=== PATIENT | male | born 1935 | race Caucasian/White ===

== ENCOUNTER → 2016-11-13 | Outpatient (REF) | payer MEDICARE, BC | LOC: M LAB REF 11:38 | PROVIDERS: ATTEND Otolaryngology | DX: K13.21 Leukoplakia of oral mucosa, including tongue (principal) ==

== ENCOUNTER → 2018-06-29 | Outpatient (CLI) | payer MEDICARE, BC ==
--- NOTE | 2018-06-29 12:26 | REP ---
Chest two views HISTORY: shortness of breath Comparison: None The lungs are clear. The heart is normal in size. The pulmonary vasculature is normal in appearance. Degenerative change is present in the thoracic spine. IMPRESSION: No acute disease. Electronically Signed by Walter Christianson MD 06/29/2018 12:18 P
== END ==
LOC: M WUC 11:42
PROVIDERS: ATTEND Family Medicine
DX: R06.02 Shortness of breath (principal)

== ENCOUNTER → 2018-08-19 | Outpatient (REF) | payer MEDICARE, BC ==
[2018-08-19 18:23] LABS: PERCENT SATURATION 10.4 % (19.7-50.0)
== END ==
LOC: M LAB REF 16:22
PROVIDERS: ATTEND Internal Medicine
DX: D64.9 Anemia, unspecified (principal)

== ENCOUNTER 2018-09-30 12:18 | Inpatient (IN) | payer MEDICARE, BC ==
[~2018-09-30] VITALS: Ht 190.5 cm; Wt 92.1 kg
[2018-09-30] MEDS ORDERED: AMLO5TAB6 PO (12:28)
[2018-09-30] MEDS ORDERED: SYNT100T PO (12:28)
[2018-09-30] MEDS ORDERED: ROSU40TA4 PO (12:28)
[2018-09-30] MEDS ORDERED: LISI-538 PO (12:41)
[2018-09-30] MEDS ORDERED: FERR324T2 PO (12:41)
[2018-09-30] MEDS ORDERED: METO1TAB87 PO (12:41)
[2018-09-30 13:02] LABS: BASO # 0.1 10^3/uL (0.0-0.2); BASO % 0.4 % (0.0-1.0); EOS % 0.2 % (0.0-3.0); HEMATOCRIT 28.9 % (42.0-52.0); HEMOGLOBIN 9.4 g/dl (13.5-17.5); LYMPH # 1.5 10^3/uL (1.5-4.5); MEAN CORPUSCULAR HGB CONC 32.5 g/dl (32.0-36.5); MEAN CORPUSCULAR VOLUME 80.1 fl (80.0-96.0); MONO # 1.6 10^3/uL (0.0-0.8); MONO % 9.5 % (0.0-5.0); PLATELET COUNT, AUTOMATED 519 10^3/uL (150-450); RED BLOOD COUNT 3.61 10^6/uL (4.30-6.10); WHITE BLOOD COUNT 16.5 10^3/uL (4.0-10.0)
[2018-09-30] MEDS ORDERED: NS 500 ML IV ONE (13:15)
[2018-09-30 13:31] LABS: ALBUMIN 2.4 GM/DL (3.2-5.2); BILIRUBIN,TOTAL 0.3 MG/DL (0.2-1.0); CALCIUM LEVEL 9.7 MG/DL (8.8-10.2); CREATININE FOR GFR 2.36 MG/DL (0.70-1.30); GLOMERULAR FILTRATION RATE 28.2 (>35); POTASSIUM SERUM 4.9 MEQ/L (3.5-5.1); TOTAL PROTEIN 7.5 GM/DL (6.4-8.2)
[2018-09-30] MEDS ORDERED: SENN-23 PO (16:32)
--- NOTE | 2018-09-30 16:57 | REP ---
CT abdomen and pelvis without IV or oral contrast: History: Acute renal failure. Renal mass. No comparison imaging available. 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 The lung bases show no evidence of infiltrate. There are multiple subcentimeter noncalcified pulmonary nodules in the right lower lobe. These are indeterminate. No pleural effusion is seen. The liver is normal in size. There is a low-density lesion in the right lobe posterior to the intrahepatic segment of the IVC. This low density area measures 1.7 cm in greatest diameter. There is an ill-defined large low density area in the left hepatic lobe which could be a liver mass lesion. This measures approximately 8 cm in greatest diameter. A second smaller lesion is suspected adjacent to this. No other focal liver lesion is seen. There are layering gallstones in the dependent portion the gallbladder. No biliary ductal dilation is evident. There are multiple cysts affecting the right kidney, the largest of which measures 6.1 cm. No right hydronephrosis is seen. No evidence of right renal mass is noted. There is a large mass involving the upper pole of the left kidney and measuring approximately 9 cm in greatest diameter. It is heterogeneous and there are central low density areas suggesting some central necrosis. It is most compatible with renal cell carcinoma. There is soft tissue density lateral to the left side of the aorta at the level of the left renal hilus, which may represent left renal vein involvement and enlargement with tumor thrombus versus regional adenopathy. There is a 1.9 cm nodular periaortic density below this which likely is regional adenopathy. There is another suspicious lymph node at the level above the renal artery pedicle on the left. This measures 1.2 cm in greatest diameter. Hydronephrosis is seen. There is a lower pole cyst affecting the left kidney. The aortobi-iliac stent graft is seen in place treating the abdominal aortic aneurysm. The abdominal aortic aneurysm measures 4.5 cm in greatest AP dimension. Small and large bowel loops show ileus versus enteritis pattern. There is an umbilical hernia transmitting abdominal fat. No free air is seen. Normal appendix is visible. Bone window settings show no bony destructive lesion. The sacroiliac joints appear to be fused. There are advanced degenerative disc changes and facet changes in the lumbar spine and there is evidence of significant central canal stenosis in the lumbar spine at L3-4. Impression: 9 cm suspicious mass upper pole left kidney consistent with renal cell carcinoma. Findings suspicious for regional adenopathy and left renal vein tumor thrombus. Possible large metastatic lesion in the left lobe of the liver versus regional fat infiltration. Recommend hepatic sonography. There are indeterminate subcentimeter pulmonary nodules in the right lower lobe of the lung. Ileus versus enteritis pattern in the bowel gas. Cholelithiasis. Multiple right and left renal cysts. Electronically Signed by Alok Cuellar MD 09/30/2018 09:07 P
[2018-09-30] MEDS ORDERED: SENOKOT S TAB PO PRN (17:15)
[2018-09-30] MEDS ORDERED: LR 1,000 ML IV ONE (17:15)
--- NOTE | 2018-09-30 17:26 | HPEPDOC ---
[facility] Medical History & Physical Date of Admission Sep 30, 2018 Date of Service: Sep 30, 2018 History and Physical CHIEF COMPLAINT: Weakness HISTORY OF PRESENT ILLNESS: This is a 83-year-old man presents with progressively worsening weakness his history is rather interesting, 4 weeks ago he developed dark urine presented to primary care provider after suspecting hematuria and passing large clots at that point he was diagnosed with iron deficiency anemia started on iron supplementation and a CT scan without contrast was checked revealing a large 8.3 cm left renal mass as well as some small concerning liver lesions. He was then referred to a urologist completed a CT scan with contrast on September 25 confirmed the lesion as well revealed extension into the renal vein highly suspicious liver metastasis from a possible left renal carcinoma primary. The patient was subsequently referred to [facility] where he seen Dr. Sims and the plan is for a biopsy of his left renal mass in 2 weeks. Given the patient's history of coronary artery disease abdominal aortic disease was not felt to be a surgical candidate and as such suspicion was once a tissue diagnosis can be made he may be a candidate for ch emotherapy/radiotherapy. The patient was seen in the oncology office yesterday. However today he is notably more week feeling unsteady on his feet and having increasingly difficulty caring for himself at home prompting him and his and a close friend who has some nursing background to present to the emergency room today. The patient provides a history of 30 pound weight loss since May and poor appetite he denies any chest pressure or palpitations. The patient tells me that he has had intermittent pain in his left flank which at the present time he is not experiencing. Otherwise patient denies hair loss, headache, visual changes, shortness of breath, cough, diarrhea, abdominal pain, muscle aches, worsening arthritis, change in mood PAST MEDICAL HISTORY: 1. Coronary artery disease stents 4. 2. Abdominal aortic aneurysm status post endograft repair. 3. Hypertension. 4. Prostate cancer treated with " freezing" 5' arthritis 6 dyslipidemia 7 hypothyroidism 8 iron deficiency anemia 9 beta cell carcinoma the face HOME MEDICATIONS: Please see below. ALLERGIES: Please see below PAST SURGICAL HISTORY: 1. Bilateral hip repair. 2. Aortic graft for abdominal aortic aneurysm. 3. Basal cell carcinoma of the face . SOCI excisionAL HISTORY: Lives with: , Employment: Retired, Tobacco use: Former smoker in the distant past [id number]. ETOH: Denies, Illicit drug use: Denies, CODE STATUS: Full code FAMILY HISTORY:Reviewed and noncontributory REVIEW OF SYSTEMS: 10 systems reviewed and negative other than HPI PHYSICAL EXAMINATION: VITAL SIGNS: Temperature 97.6, pulse 100, respiratory rate 16, blood pressure 107/50, pulse oximetry 98 % on room air. GENERAL: Pleasant wasted-appearing male sitting up in bed awake alert oriented speaking in complete sentences no acute distress accompanied by his and good friend HEENT: Mildly dry mucous membranes no elevation in CVP CARDIOVASCULAR: S1 S2 irregularly irregular mildly tachycardic no additional heart sounds appreciated. RESPIRATORY: Clear to auscultation bilaterally. ABDOMINAL: Bowel sounds present abdomen soft and some mild tenderness to deep palpation in the epigastric region there is no CVA tenderness EXTREMITIES: No clubbing cyanosis or edema NEUROLOGICAL: Spontaneously moves all 4 extremities cranial 2 through 12 grossly intact no gross focal deficits appreciated PSYCHOLOGICAL: Appropriate LABORATORY DATA: See below. MICROBIOLOGY: Please see below. IMAGING: CT abdomen and pelvis: Report is pending the patient travels with previous CT reports from the last 2 months ASSESSMENT & PLAN: This is a 83-year-old man with likely renal cell carcinoma with extension into the renal vein and numerous liver metastasis presenting now with acute renal failure. PROBLEMS: 1. Acute renal failure: He was reportedly told his baseline creatinine is closer to 1.60 is currently 2.3. He is orthostatic in the emergency room I suspect given his poor by mouth intake he may be dehydrated and I'll provide him with lactated Ringer's bolus as well as maintenance fluids following. I will follow up his BMP repeat in the morning closely. I'll also check urine studies including a UA to exclude any potential etiologies for his hypertension such as a urinary tract infection, given his history of a low threshold to begin antibiotics on him. Should he fail to improve with these measures could consider inpatient nephrology consultation, patient was reportedly told that his right kidney was functioning just fine, follow-up CT of the abdomen and pelvis to exclude any obstructive process. 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 He is also orthostatic again I suspect possible secondary to some dehydration we will adequately hydrate him have him work with physical therapy and encourage by mouth provide a regular diet with nutritional supplements place a nutritional consult. The patient and family request a hospital bed and as such a PFS consultation placed. He also complains to have an element of symptomatic anemia 3. Atrial fibrillation with rapid ventricular response: Patient has a history of coronary artery disease and is normally on a beta mercedez and a statin in the setting of hematuria we are holding aspirin and pharmacological DVT prophylaxis I will continue with his beta mercedez for rate control with holding parameter gi nallely his soft blood pressure. I would withhold anticoagulation from him in the setting of ongoing bleeding. I will check an echocardiogram and TSH cycle his troponins and monitor him closely on telemetry and optimistic when his blood pressure improves may be able to increase his rate control 4. Anemia: Patient was told this was iron deficiency, I will send anemia workup he certainly has had significant and ongoing bleeding for months in his urine will rule out other potential etiologies as well his hemoglobin is not quite low enough to make me suspect that his driving WEAKNESS I would hold off on any transfusions at this time I will have a type and screen completed on standby. Follow CBC daily. Given his anemia and liver disease I will check an INR 5. 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 Hypertension: At this time he is actually hypotensive I will hold lisinopril and amlodipine in favor of metoprolol for some rate control 7. Dyslipidemia: I will hold Crestor in the setting of liver metastasis and check a liver profile 8. 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 Certainly given his age and multiple comorbidities and fragility long-term prognosis is certainly guarded DVT PROPHYLAXIS: Sequentials and teds pharmacological agents in the setting of possible ongoing bleeding DISPOSITION: Progressive care unit inpatient status Vital Signs Vital Signs Date Time Temp Pulse Resp B/P (MAP) Pulse Ox O2 Delivery O2 Flow Rate FiO2 09/30/18 16:34 100 100 09/30/18 15:53 116/75 (89) 113/57 (75) 107/50 (69) 09/30/18 13:18 Room Air 09/30/18 12:19 97.6 16 Laboratory Data Labs 24H Laboratory Tests 2 09/30/18 12:51: Immature Granulocyte % (Auto) 1.9, White Blood Count 16.5H, Red Blood Count 3.61L, Hemoglobin 9.4L, Hematocrit 28.9L, Mean Corpuscular Volume 80.1, Mean Corpuscular Hemoglobin 26.0L, Mean Corpuscular Hemoglobin Concent 32.5, Red Cell Distribution Width 15.6H, Platelet Count 519H, Neutrophils (%) (Auto) 79.0H, Lymphocytes (%) (Auto) 9.0L, Monocytes (%) (Auto) 9.5H, Eosinophils (%) (Auto) 0.2, Basophils (%) (Auto) 0.4, Neutrophils # (Auto) 13.0H, Lymphocytes # (Auto) 1.5, Monocytes # (Auto) 1.6H, Eosinophils # (Auto) 0.0, Basophils # (Auto) 0.1, Nucleated Red Blood Cells % (auto) 0.0, Anion Gap 9, Glomerular Filtration Rate 28.2L, Blood Urea Nitrogen 64H, Creatinine 2.36H, Sodium Level 134L, Potassium Level 4.9, Chloride Level 100, Carbon Dioxide Level 25, Calcium Level 9.7, Aspartate Amino Transf (AST/SGOT) 62H, Alanine Aminotransferase (ALT/SGPT) 56, Alkaline Phosphatase 150H, Total Bilirubin 0.3, Total Protein 7.5, Albumin 2.4L, Albumin/Globulin Ratio 0.47L CBC/BMP Laboratory Tests 09/30/18 12:51 Red Blood Count 3.61 L, Mean Corpuscular Volume 80.1, Mean Corpuscular Hemoglobin 26.0 L, Mean Corpuscular Hemoglobin Concent 32.5, Red Cell Distribution Width 15.6 H, Neutrophils (%) (Auto) 79.0 H, Lymphocytes (%) (Auto) 9.0 L, Monocytes (%) (Auto) 9.5 H, Eosinophils (%) (Auto) 0.2, Basophils (%) (Auto) 0.4, Neutrophils # (Auto) 13.0 H, Lymphocytes # (Auto) 1.5, Monocytes # (Auto) 1.6 H, Eosinophils # (Auto) 0.0, Basophils # (Auto) 0.1, Calcium Level 9.7, Aspartate Amino Transf (AST/SGOT) 62 H, Alanine Aminotransferase (ALT/SGPT) 56, Alkaline Phosphatase 150 H, Total Bilirubin 0.3, Total Protein 7.5, Albumin 2.4 L Home Medications Scheduled Amlodipine Besylate (Amlodipine Besylate) 5 Mg Tablet, 5 MG PO DAILY Ferrous Sulfate (Ferrous Sulfate) 324 Mg Tablet.dr, 324 MG PO Q2D Levothyroxine Sodium (Synthroid) 100 Mcg Tablet, 100 MCG PO DAILY Lisinopril (Lisinopril) 20 Mg Tablet, 20 MG PO DAILY Metoprolol Tartrate (Metoprolol Tartrate) 25 Mg Tablet, 25 MG PO BID Rosuvastatin Calcium (Rosuvastatin Calcium) 40 Mg Tablet, 40 MG PO DAILY Scheduled PRN Sennosides/Docusate Sodium (Senna-S Tablet) 1 Each Tablet, 2 TAB PO DAILY PRN for CONSTIPATION Allergies Coded Allergies: No Known Allergies (Unverified , 09/30/18) A-FIB/CHADSVASC A-FIB History Current/History of A-Fib/PAF?: Yes Current PO Anticoag Therapy: No Treatment Reason Anticoagulant not given: Current bleeding FRANCO BAIG MD Sep 30, 2018 17:26
[2018-09-30 18:11] LABS: INR 1.36; PROTHROMBIN TIME 16.5 SECONDS (11.8-14.0)
[2018-09-30 18:20] LABS: BILIRUBIN,DIRECT 0.2 MG/DL (0.0-0.2); PERCENT SATURATION 13.6 % (19.7-50.0); THYROID STIMULATING HORMONE 1.44 uIU/ML (0.358-3.740); TROPONIN I 0.06 NG/ML (< 0.10)
[2018-09-30 19:22] VITALS: BP 117/91
[2018-09-30 20:00] VITALS: BP 100/55
[2018-09-30] MEDS: METOPROLOL TART 25 MG TABLET PO SCH (21:00)
[2018-09-30] MEDS: LR 1,000 ML IV SCH (22:39)
[2018-09-30 23:20] LABS: OSMOLALITY URINE 542 MOSM/KG (500-800)
[2018-09-30 23:56] LABS: SODIUM,RANDOM URINE 18 MEQ/L
[2018-10-01] VITALS (7 sets, daily range): BP systolic 94–118; BP diastolic 54–80
[2018-10-01] MEDS: LEVOTHYROXINE 100MCG TABLET (0.1MG) PO SCH (06:01)
[2018-10-01 06:22] LABS: TROPONIN I 0.07 NG/ML (< 0.10)
[2018-10-01 07:00] LABS: CREATININE FOR GFR 1.99 MG/DL (0.70-1.30); GLOMERULAR FILTRATION RATE 34.3 (>35)
[2018-10-01 07:01] LABS: BILIRUBIN,TOTAL 0.4 MG/DL (0.2-1.0); CALCIUM LEVEL 9.4 MG/DL (8.8-10.2); POTASSIUM SERUM 4.3 MEQ/L (3.5-5.1); TOTAL PROTEIN 7.1 GM/DL (6.4-8.2)
[2018-10-01 08:19] LABS: HEMOGLOBIN 8.8 g/dl (13.5-17.5); MEAN CORPUSCULAR HEMOGLOBIN 26.3 pg (27.0-33.0); MEAN CORPUSCULAR HGB CONC 32.6 g/dl (32.0-36.5); MEAN CORPUSCULAR VOLUME 80.6 fl (80.0-96.0); PLATELET COUNT, AUTOMATED 438 10^3/uL (150-450); RED BLOOD COUNT 3.35 10^6/uL (4.30-6.10); WHITE BLOOD COUNT 16.6 10^3/uL (4.0-10.0)
[2018-10-01] MEDS: METOPROLOL TART 25 MG TABLET PO SCH ×2 (08:52→21:00)
[2018-10-01] MEDS: LR 1,000 ML IV SCH (12:36)
--- NOTE | 2018-10-01 14:51 | IPNPDOC ---
Date Seen The patient was seen on 10/01/18. Progress Note SUBJECTIVE: Patient is a 83-year-old white male with a past medical history of CAD x4 stents, AAA s/p endograft repair, Hypertension, prostate cancer, arthritis, dyslipidemia, hypothyroidism, Iron deficiency anemia, and basal cell carcinoma on face presented to ER with weakness. Mr. Lee has been experiencing progressively worsening weakness. Approximately 4 weeks ago he developed dark urine and presented to his PCP after noticing blood and clots in his urine. He was diagnosed with iron deficiency anemia and started on an iron supplement. A CT scan without contrast showed a large 8.3 cm left renal mass as well as small concerning liver lesions. Mr. Lee was referred to urology and saw Dr. Sims. He is scheduled for a biopsy of his left renal mass in two weeks. He is not considered a candidate for surgery due to his past medical history of CAD and AAA. He was seen by Oncology yesterday and seems to be unsteady when walking and increasingly weaker. Mr. Lee has had more trouble taking care of himself at home. He admits to a 30lb weight loss since May, poor appetite, and intermittent left flank pain. He denies chest pressure, chest palpitations, headache, visual changes, shortness of breath, cough, or diarrhea. Patient was examined at bedside. OBJECTIVE PHYSICAL EXAMINATION: VITAL SIGNS: Please see below. GENERAL: Very pleasant 83-year-old male sitting up on the bed appropriately answering questions in no acute distress. HEENT: Temporal wasting bilaterally atraumatic normocephalic dry mucous membrane with no JVD noted CARDIOVASCULAR: Irregularly irregular rate controlled with no audible murmurs rubs or gallops RESPIRATORY: There to auscultate bilaterally no audible wheezing rhonchus or rales ABDOMINAL: Positive bowel sounds in all 4 quadrants mild tenderness in the epigastric area with deep palpation but no CVA tenderness EXTREMITIES: No lower extremity edema calf tenderness NEUROLOGICAL: Slight lab with visual tracking horizontally bilaterally. Slight intention tremor but no dysarthria or Dysdiodochokinesia noted. Muscle strength 5 out of 5 in the upper extremities. Sensation intact in the upper and lower extremities. PSYCHOLOGICAL: Some cognitive decline. LABORATORY DATA, IMAGING STUDIES, MICROBIOLOGY: Please see below. 1. Abdomen/pelvis CT 09/30/18: 9 cm suspicious mass upper pole left kidney consistent with renal cell carcinoma. Findings suspicious for regional adenopathy and left renal vein tumor thrombus. Possible large metastatic lesion in the left lobe of the liver versus regional fat infiltration. Recommend hepatic sonography. There are indeterminate subcentimeter pulmonary nodules in the right lower lobe of the lung. Ileus versus enteritis pattern in the bowel gas. Cholelithiasis. Multiple right and left renal cysts. 2. Brain MRI 10/01/18: 1. No acute ischemia or infarction. 2. 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 DVT Prophylaxis ordered: TEDs and SCDs. Holding anticoagulation due to bleeding. ASSESSMENT AND PLAN: Patient is a 83-year-old white male with a past medical history of CAD x4 stents, AAA s/p endograft repair, Hypertension, prostate cancer, arthritis, dyslipidemia, hypothyroidism, Iron deficiency anemia, and basal cell carcinoma on face PROBLEMS: Renal cell carcinoma stage IV with likely liver metastases -possible large metastatic lesion in the left lobe of the liver -indeterminate subcentimeter pulmonary nodules in the right lower lobe of the lung. -Left renal mass tissue biopsy scheduled in two weeks Acute renal failure: -Creatinine currently 1.99 -given lactated ringers in ED; will c/w IV fluids -hyponatremic with elevated AST and Alkaline phosphase, albumin is low -Urinalysis: 1+ protein, 1+ blood, 1+ leukocyte esterase, 15+ WBC, 9+RBC, small amount of amorphous sediment. -Abdomen/pelvis CT results above. A 9cm suspicious mass was found on upper pole of left kidney, consistent with renal cell carcinoma. 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 or 2/2 dehydration -Patient has decreased oral intake and decreased appetite -c/w IV fluids -Patient will work with PT and OT -On regular diet Beneficiary requires positioning of the body in ways not feasible with an ordinary bed in order to alleviate pain and the beneficiary requires frequent changes in body position and has immediate need for change in body position Atrial fibrillation with RVR -c/w beta mercedez for rate control -holding anticoagulation in the setting of ongoing bleeding -48 hour telemetry -trending troponins -Echocardiogram ordered Iron deficiency anemia -Full Iron panel workup: Iron, TIBC, Ferritin, % saturation all decreased -No transfusion needed at this time Hypothyroidism -TSH within normal limits -c/w levothyroxine Hypertension: -borderline hypotensive today -holding lisinopril and amlodipine -c/w metoprolol Dyslipidemia -holding home meds -AST and Alkaline phosphatase elevated -Albumin is low DISPOSITION: Patient is stable and prognosis is guarded. Patient working with PT and OT and eating a regular diet. Recommended to follow up closely with [facility] Oncology. Scheduled for left renal mass biopsy as outpatient in two weeks. I saw and evaluated the patient. I agree with the findings and plan of care as documented in the above note VS, I&O, 24H, Fishbone Vital Signs/I&O Vital Signs Date Time Temp Pulse Resp B/P (MAP) Pulse Ox O2 Delivery O2 Flow Rate FiO2 10/01/18 12:00 94 102/56 (71) 92 94/54 (67) 10/01/18 08:54 97.2 16 98 09/30/18 18:49 Room Air I&O- Last 24 Hours up to 6 AM 10/01/18 06:00 Intake Total 950 ml Output Total 300 ml Balance 650 ml Laboratory Data 24H LABS Laboratory Tests 2 09/30/18 17:44: 09/30/18 23:08: Urine Color YELLOW, Urine Appearance CLEAR, Urine pH 5.0, Urine Specific [place] 1.017, Urine Protein 1+H, Urine Glucose (UA) NEGATIVE, Urine Ketones NEGATIVE, Urine Blood 1+H, Urine Nitrite NEGATIVE, Urine Bilirubin NEGATIVE, Urine Urobilinogen 0.2, Urine Leukocyte Esterase 1+H, Urine WBC (Auto) 15H, Urine RBC (Auto) 9H, Urine Hyaline Casts (Auto) 4, Urine Bacteria (Auto) NEGATIVE, Urine Squamous Epithelial Cells 0, Urine Amorphous Sediment SMALLH, Urine Mucus (Auto) SMALL, Urine Sperm (Auto) , Urine Random Osmolality 542, Urine Random Creatinine 210.0, Urine Random Sodium 18 10/01/18 04:48: Nucleated Red Blood Cells % (auto) 0.0, Anion Gap 9, Glomerular Filtration Rate 34.3L, Blood Urea Nitrogen 66H, Creatinine 1.99H, Sodium Level 135L, Potassium Level 4.3, Chloride Level 102, Carbon Dioxide Level 24, Calcium Level 9.4, Aspartate Amino Transf (AST/SGOT) 52H, Alanine Aminotransferase (ALT/SGPT) 52, Alkaline Phosphatase 135H, Total Bilirubin 0.4, Total Protein 7.1, Albumin 2.0L, Troponin I 0.07, Albumin/Globulin Ratio 0.39L CBC/BMP Laboratory Tests 10/01/18 04:48 Red Blood Count 3.35 L, Mean Corpuscular Volume 80.6, Mean Corpuscular Hemoglobin 26.3 L, Mean Corpuscular Hemoglobin Concent 32.6, Red Cell Distribution Width 15.7 H, Calcium Level 9.4, Aspartate Amino Transf (AST/SGOT) 52 H, Alanine Aminotransferase (ALT/SGPT) 52, Alkaline Phosphatase 135 H, Total Bilirubin 0.4, Total Protein 7.1, Albumin 2.0 L Microbiology Microbiology 09/30/18 Blood Culture, Received Pending 09/30/18 Blood Culture, Received Pending 09/30/18 Urine Culture, Received Pending IRINEO LEDESMA OMS-3 Oct 01, 2018 14:51 RYAN GIBBS DO Oct 01, 2018 17:19 FRANCO BAIG MD Oct 03, 2018 16:07
--- NOTE | 2018-10-01 15:06 | REP ---
MRI of the brain without contrast Clinical indication: Irregular cerebellar examination. Comparison: None Technique: MRI of the brain was performed without contrast utilizing sagittal T1 FLAIR and axial diffusion weighted imaging, T1, T2, FLAIR, DWI and gradient imaging. Findings: There is no restricted diffusion to suggest acute ischemia or infarction. There are scattered and confluent and T2 hyperintensities within the subcortical and periventricular white matter which are nonspecific. Multiple foci of susceptibility scattered throughout the cerebral and to a lesser degree the cerebellum, consistent with microhemorrhage in a pattern suggestive of amyloid microangiopathy. The ventricles and sulci are symmetric. There is no mass effect or midline shift. There is no basal cistern effacement. There is no extra-axial fluid collection. The visualized flow voids are patent. The basal ganglion is diffusely T2 hypointense which could represent demineralization. Impression: 1. No acute ischemia or infarction. 2. 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 Electronically Signed by Rich Shane MD 10/01/2018 06:58 P
--- NOTE | 2018-10-01 18:54 | ECHO ---
DATE OF PROCEDURE: 10/01/2018 REFERRING PHYSICIAN: Dr. Clyde Watters INDICATION: abnormal ECG. Height 191 cm Brice 84 kg. DIMENSIONS: IVS 1.4 LV 3.9 LVPW 1.4 LA 3.6 Aorta 3.2 IVC 1.9 FINDINGS: The study is of rather limited technical quality as the visualization was challenging. I am uncertain what is the underlying rhythm. Based on available tracing it appears that it is most likely atrial flutter with variable conduction and very frequent ventricular ectopy. Underlying QRS complex is wide. Left ventricle is of normal size and overall probably normal systolic function based on limited visualization. I estimate EF around 60%. I certainly cannot rule out subtle wall motion abnormalities with any degree of certainty. Right ventricle does not appear grossly enlarged and is normally contractile. Both atria appear enlarged. Aortic valve is sclerotic but has three cusps and preserved mobility. There are also mild degenerative abnormalities of mitral valve with mitral annular calcifications but mobility of leaflets is preserved. Tricuspid valve appears normal. Pulmonic valve was not well seen. No pericardial effusion is noted. Inferior vena cava is on upper limits of normal size. Aortic root is normal. Aortic arch and abdominal aorta were not well seen. Doppler interrogation of aortic valve reveals trivial stenosis and no insufficiency. Mitral valve is functionally competent. There is trace tricuspid insufficiency. Unfortunately quality of TR jet was not sufficient to adequately estimate pulmonary artery pressure. Evaluation of diastolic function is complicated by irregularity of underlying rhythm and wide QRS complex and frequent ventricular ectopy. CONCLUSIONS: 1. Study is of fair technical quality. 2. Preserved LV size with mild LVH and grossly preserved LV systolic function. Unable to determine diastolic function. 3. Aortic sclerosis with trivial stenosis. 4. Likely normal central venous pressure. 5. Unable to estimate pulmonary artery pressure. COMMENT: SBE prophylaxis is not recommended. MTDD
[2018-10-01] MEDS: LATANOPROST 0.005% OPHTH SOLN 2.5 ML OU SCH (22:00)
[2018-10-02] VITALS (7 sets, daily range): BP systolic 83–143; BP diastolic 55–88
[2018-10-02 05:38] LABS: HEMATOCRIT 26.8 % (42.0-52.0); HEMOGLOBIN 8.7 g/dl (13.5-17.5); MEAN CORPUSCULAR HEMOGLOBIN 26.2 pg (27.0-33.0); MEAN CORPUSCULAR HGB CONC 32.5 g/dl (32.0-36.5); MEAN CORPUSCULAR VOLUME 80.7 fl (80.0-96.0); PLATELET COUNT, AUTOMATED 387 10^3/uL (150-450); RED BLOOD COUNT 3.32 10^6/uL (4.30-6.10); WHITE BLOOD COUNT 14.9 10^3/uL (4.0-10.0)
--- NOTE | 2018-10-02 05:44 | ECGEPIP ---
[facility] - ED Test Date: 2018-09-30 Pat Name: NGHIA MARTINS Department: Room: - Gender: Male Access Assoc: Joseline : 1935 Requested By: Krystle Mayen Order Number: [id number] Reading MD: Jose Dial Measurements Intervals [place] Rate: 89 P: OR: 0 QRS: -77 QRSD: 125 T: 18 QT: 361 QTc: 441 Interpretive Statements ATRIAL FIBRILLATION RIGHT BUNDLE BRANCH BLOCK LEFT ANTERIOR FASCICULAR BLOCK NO PRIORS FOR COMPARISON Electronically Signed on 10-02-2018 5:44:24 EDT by Jose Dial
[2018-10-02] MEDS: LEVOTHYROXINE 100MCG TABLET (0.1MG) PO SCH (05:56)
[2018-10-02 05:58] LABS: BILIRUBIN,TOTAL 0.4 MG/DL (0.2-1.0); CALCIUM LEVEL 9.3 MG/DL (8.8-10.2); CREATININE FOR GFR 1.7 MG/DL (0.70-1.30); GLOMERULAR FILTRATION RATE 41.2 (>35); POTASSIUM SERUM 4.5 MEQ/L (3.5-5.1); TOTAL PROTEIN 7.2 GM/DL (6.4-8.2)
[2018-10-02] MEDS: LR 1,000 ML IV SCH ×3 (09:15→22:35)
[2018-10-02] MEDS: METOPROLOL TART 25 MG TABLET PO SCH ×2 (09:17→16:00)
--- NOTE | 2018-10-02 11:46 | IPNPDOC ---
Date Seen The patient was seen on 10/02/18. Progress Note SUBJECTIVE: Patient is a 83-year-old white male with a past medical history of CAD x4 stents, AAA s/p endograft repair, Hypertension, prostate cancer, arthritis, dyslipidemia, hypothyroidism, Iron deficiency anemia, and basal cell carcinoma on face presented to ER with weakness. Mr. Lee has been experiencing progressively worsening weakness. Approximately 4 weeks ago he developed dark urine and presented to his PCP after noticing blood and clots in his urine. He was diagnosed with iron deficiency anemia and started on an iron supplement. A CT scan without contrast showed a large 8.3 cm left renal mass as well as small concerning liver lesions. Mr. Lee was referred to urology and saw Dr. Sims. He is scheduled for a biopsy of his left renal mass in two weeks. He is not considered a candidate for surgery due to his past medical history of CAD and AAA. He was seen by Oncology yesterday and seems to be unsteady when walking and increasingly weaker. Mr. Lee has had more trouble taking care of himself at home. He admits to a 30lb weight loss since May, poor appetite, and intermittent left flank pain. He denies chest pressure, chest palpitations, headache, visual changes, shortness of breath, cough, or diarrhea. Patient is examined at bedside. He was sitting up in his chair watching television. Patient appears fatigued and fell asleep more than twice during the physical exam. He states that he worked with physical therapy this morning and felt dizzy and short of breath while walking to the bathroom. He has an appetite and denies nausea, vomiting, or diarrhea. We are working to get the patient a hospital bed for his home. He requires positioning of the body in ways not feasible with an ordinary bed in order to alleviate pain. He also requires changes in body position and/or has an immediate change in body position. Patient continues to be afebrile. OBJECTIVE PHYSICAL EXAMINATION: VITAL SIGNS: Please see below. GENERAL: An 83-year-old male sitting up in chair appropriately answering questions in no acute distress. He is in a pleasant mood but falls asleep during the exam. HEENT: Temporal wasting bilaterally. NC AT. Mucous membranes are dry. Eyes are sunken. CARDIOVASCULAR: Irregularly irregular rate. No murmurs rubs or gallops were appreciated RESPIRATORY: Clear to auscultation bilaterally. No wheezing rhonchus or rales appreciated ABDOMINAL: Positive bowel sounds. Slight tenderness in the epigastric area with deep palpation. No CVA tenderness. Mild tenderness to palpation in suprapubic region. EXTREMITIES: No lower extremity edema noted. No cyanosis or rashes. NEUROLOGICAL: Slight lag with visual tracking horizontally bilaterally. Slight intention tremor but no dysarthria or Dysdiodochokinesia noted. Muscle strength 5 out of 5 in the upper extremities. Sensation intact in the upper and lower extremities. PSYCHOLOGICAL: Some cognitive decline. LABORATORY DATA, IMAGING STUDIES, MICROBIOLOGY: Please see below. 1. Abdomen/pelvis CT 09/30/18: 9 cm suspicious mass upper pole left kidney consistent with renal cell carcinoma. Findings suspicious for regional adenopathy and left renal vein tumor thrombus. Possible large metastatic lesion in the left lobe of the liver versus regional fat infiltration. Recommend hepatic sonography. There are indeterminate subcentimeter pulmonary nodules in the right lower lobe of the lung. Ileus versus enteritis pattern in the bowel gas. Cholelithiasis. Multiple right and left renal cysts. 2. Brain MRI 10/01/18: 1. No acute ischemia or infarction. 2. 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 Echocardiogram: 1. Study is of fair technical quality. 2. Preserved LV size with mild LVH and grossly preserved LV systolic function. Unable to determine diastolic function. 3. Aortic sclerosis with trivial stenosis. 4. Likely normal central venous pressure. 5. Unable to estimate pulmonary artery pressure. DVT prophylaxis ordered?: TEDs and SCDs. Holding anticoagulation due to bleeding. ASSESSMENT AND PLAN: Patient is a 83-year-old white male with a past medical history of CAD x4 stents, AAA s/p endograft repair, Hypertension, prostate cancer, arthritis, dyslipidemia, hypothyroidism, Iron deficiency anemia, and basal cell carcinoma on face PROBLEMS: Renal cell carcinoma stage IV with likely liver metastases -possible large metastatic lesion in the left lobe of the liver -Albumin and albumin/globulin ratio low -indeterminate subcentimeter pulmonary nodules in the right lower lobe of the lung. -Left renal mass tissue biopsy scheduled in two weeks Beneficiary requires positioning of the body in ways not feasible with an ordinary bed in order to alleviate pain and the beneficiary requires frequent changes in body position and has immediate need for change in body position Acute renal failure: -Creatinine currently 1.70; his baseline is 1.60 -given lactated ringers in ED; will c/w IV fluids -hyponatremic with elevated AST and Alkaline phosphase, albumin is low -Urinalysis: 1+ protein, 1+ blood, 1+ leukocyte esterase, 15+ WBC, 9+RBC, small amount of amorphous sediment. -Abdomen/pelvis CT results above. A 9cm suspicious mass was found on upper pole of left kidney, consistent with renal cell carcinoma. 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 or 2/2 dehydration -Patient has decreased oral intake and decreased appetite -c/w IV fluids -Patient working with PT and OT -On regular diet, had diet consultation Atrial fibrillation with RVR -c/w beta mercedez for rate control -holding anticoagulation in the setting of ongoing bleeding -48 hour telemetry -trending troponins -Echocardiogram ordered Iron deficiency anemia -Full Iron panel workup: Iron, TIBC, Ferritin, % saturation all decreased -No transfusion needed at this time Hypothyroidism -TSH within normal limits -c/w levothyroxine Hypertension: -borderline hypotensive today -holding lisinopril and amlodipine -c/w metoprolol Dyslipidemia -holding home meds -AST and Alkaline phosphatase elevated -Albumin is low DISPOSITION: Patient is stable and prognosis is guarded. Patient working with PT and OT and eating a regular diet. Recommended to follow up closely with [facility]. Scheduled for left renal mass biopsy as outpatient in two weeks. Patient had a social service consult. We are working to get the patient a hospital bed for his home. He requires positioning of the body in ways not feasible with an ordinary bed in order to alleviate pain. He also requires changes in body position and/or has an immediate change in body position. I saw and evaluated the patient. I agree with the findings and plan of care as documented in the above note VS, I&O, 24H, Fishbone Vital Signs/I&O Vital Signs Date Time Temp Pulse Resp B/P (MAP) Pulse Ox O2 Delivery O2 Flow Rate FiO2 10/02/18 09:17 113 143/65 10/02/18 08:00 97.3 22 96 09/30/18 18:49 Room Air I&O- Last 24 Hours up to 6 AM 10/02/18 06:00 Intake Total 1135 ml Output Total 950 ml Balance 185 ml Laboratory Data 24H LABS Laboratory Tests 2 10/02/18 04:59: Nucleated Red Blood Cells % (auto) 0.0, Anion Gap 7L, Glomerular Filtration Rate 41.2, Blood Urea Nitrogen 49H, Creatinine 1.70H, Sodium Level 136, Potassium Level 4.5, Chloride Level 105, Carbon Dioxide Level 24, Calcium Level 9.3, Aspartate Amino Transf (AST/SGOT) 47H, Alanine Aminotransferase (ALT/SGPT) 50, Alkaline Phosphatase 139H, Total Bilirubin 0.4, Total Protein 7.2, Albumin 2.0L, Albumin/Globulin Ratio 0.38L CBC/BMP Laboratory Tests 10/02/18 04:59 Red Blood Count 3.32 L, Mean Corpuscular Volume 80.7, Mean Corpuscular Hemoglobin 26.2 L, Mean Corpuscular Hemoglobin Concent 32.5, Red Cell D istribution Width 15.8 H, Calcium Level 9.3, Aspartate Amino Transf (AST/SGOT) 47 H, Alanine Aminotransferase (ALT/SGPT) 50, Alkaline Phosphatase 139 H, Total Bilirubin 0.4, Total Protein 7.2, Albumin 2.0 L Microbiology Microbiology 09/30/18 Blood Culture - Preliminary, Resulted No growth after 24 hours . All specim... 09/30/18 Blood Culture - Preliminary, Resulted No growth after 24 hours . All specim... 09/30/18 Urine Culture - Final, Complete IRINEO LEDESMA OMS-3 Oct 02, 2018 11:45 FRANCO BAIG MD Oct 03, 2018 16:08
[2018-10-02] MEDS ORDERED: METOPROLOL TART 25 MG TABLET PO SCH (16:00)
[2018-10-02] MEDS: LATANOPROST 0.005% OPHTH SOLN 2.5 ML OU SCH (21:00)
[2018-10-03] VITALS (8 sets, daily range): BP systolic 109–142; BP diastolic 55–68
[2018-10-03] MEDS: METOPROLOL TART 25 MG TABLET PO SCH ×3 (00:28→15:38)
[2018-10-03 05:35] LABS: HEMATOCRIT 27.8 % (42.0-52.0); HEMOGLOBIN 8.8 g/dl (13.5-17.5); MEAN CORPUSCULAR HEMOGLOBIN 26.6 pg (27.0-33.0); MEAN CORPUSCULAR HGB CONC 31.7 g/dl (32.0-36.5); PLATELET COUNT, AUTOMATED 371 10^3/uL (150-450); RED BLOOD COUNT 3.31 10^6/uL (4.30-6.10); WHITE BLOOD COUNT 15.8 10^3/uL (4.0-10.0)
[2018-10-03 06:00] LABS: ALBUMIN 1.9 GM/DL (3.2-5.2); BILIRUBIN,TOTAL 0.2 MG/DL (0.2-1.0); CALCIUM LEVEL 9.8 MG/DL (8.8-10.2); CREATININE FOR GFR 1.64 MG/DL (0.70-1.30); GLOMERULAR FILTRATION RATE 42.9 (>35); POTASSIUM SERUM 4.4 MEQ/L (3.5-5.1); TOTAL PROTEIN 7.1 GM/DL (6.4-8.2)
[2018-10-03] MEDS: LEVOTHYROXINE 100MCG TABLET (0.1MG) PO SCH (06:52)
[2018-10-03] MEDS: LR 1,000 ML IV SCH (11:39)
[2018-10-03] MEDS ORDERED: METOPROLOL TART 12.5 MG PER 1/2 TAB PO ONE (14:45)
--- NOTE | 2018-10-03 15:47 | ECGEPIP ---
[facility] Test Date: 2018-10-01 Pat Name: NGHIA MARTINS Department: Room: [place] [address] Gender: Male Nurse Substance Abuse: MITALI : 1935 Requested By: FRANCO BAIG Order Number: [id number] Reading MD: Bronson Plasencia Measurements Intervals [place] Rate: 98 P: RI: 0 QRS: 258 QRSD: 129 T: 30 QT: 368 QTc: 472 Interpretive Statements ATRIAL FLUTTER/TACHYCARDIA MARKED RIGHT AXIS DEVIATION RIGHT BUNDLE BRANCH BLOCK LOW VOLTAGE QRS COMPLEXES IN THE LIMB LEADS PRIOR TRACING ON 09/30/2018 AT 13:32, NO SIGNIFICANT CHANGES BUT NOW FASTER HEART RATE Electronically Signed on 10-03-2018 15:47:55 EDT by Bronson Plasencia
--- NOTE | 2018-10-03 17:40 | IPNPDOC ---
Date Seen The patient was seen on 10/03/18. Progress Note SUBJECTIVE: Patient is a 83-year-old white male presented to ER with weakness. He has no complaints at this time and No overnight events reported. Patient denies chest pain, shortness breath, nausea, vomiting, fevers, chills OBJECTIVE PHYSICAL EXAMINATION: VITAL SIGNS: Please see below. GENERAL: An 83-year-old male sitting up in chair appropriately answering questions in no acute distress. He is in a pleasant mood HEENT: Temporal wasting bilaterally. NC AT. Mucous membranes are dry. Eyes are sunken. With prominent SCM, atrophy clavicular fat pad and prominent clavicular heads bilaterally. CARDIOVASCULAR: Irregularly irregular rate tachycardic. No murmurs rubs or gallops were appreciated RESPIRATORY: Clear to auscultation bilaterally. No wheezing rhonchus or rales appreciated ABDOMINAL: Positive bowel sounds. Slight tenderness in the epigastric area with deep palpation. No CVA tenderness. Mild tenderness to palpation in suprapubic region. EXTREMITIES: No lower extremity edema noted. No cyanosis or rashes. NEUROLOGICAL: Slight lag with visual tracking horizontally bilaterally. Slight intention tremor but no dysarthria or Dysdiodochokinesia noted. Muscle strength 5 out of 5 in the upper extremities. Sensation intact in the upper and lower extremities. PSYCHOLOGICAL: Some cognitive decline. LABORATORY DATA, IMAGING STUDIES, MICROBIOLOGY: Please see below. 1. Abdomen/pelvis CT 09/30/18: 9 cm suspicious mass upper pole left kidney consistent with renal cell carcinoma. Findings suspicious for regional adenopathy and left renal vein tumor thrombus. Possible large metastatic lesion in the left lobe of the liver versus regional fat infiltration. Recommend hepatic sonography. There are indeterminate subcentimeter pulmonary nodules in the right lower lobe of the lung. Ileus versus enteritis pattern in the bowel gas. Cholelithiasis. Multiple right and left renal cysts. 2. Brain MRI 10/01/18: 1. No acute ischemia or infarction. 2. 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 Echocardiogram: 1. Study is of fair technical quality. 2. Preserved LV size with mild LVH and grossly preserved LV systolic function. Unable to determine diastolic function. 3. Aortic sclerosis with trivial stenosis. 4. Likely normal central venous pressure. 5. Unable to estimate pulmonary artery pressure. DVT prophylaxis ordered?: TEDs and SCDs. Holding anticoagulation due to bleeding. ASSESSMENT AND PLAN: Patient is a 83-year-old white male with a past medical history of CAD x4 stents, AAA s/p endograft repair, Hypertension, prostate canc er, arthritis, dyslipidemia, hypothyroidism, Iron deficiency anemia, and basal cell carcinoma on face PROBLEMS: Atrial fibrillation with RVR -c/w beta mercedez for rate control -holding anticoagulation in the setting of ongoing bleeding -currently on Metoprolol 37.5 every 8 hours and titrating for rate control -Echocardiogram above Renal cell carcinoma stage IV with likely liver metastases -Left renal mass tissue biopsy scheduled on 10/07 -Beneficiary requires positioning of the body in ways not feasible with an ordinary bed in order to alleviate pain and the beneficiary requires frequent changes in body position and has immediate need for change in body position will need a hospital bed Acute on Chronic renal failure (Resolved) - his baseline is 1.60 - c/w IV fluids and encouraged PO intake 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 fib. Dyslipidemia -holding home meds -AST and Alkaline phosphatase elevated (possibly due to liver lesion) -Albumin is low PT -Consulted -Recommended home with services I saw and evaluated the patient. I agree with the findings and plan of care as documented in the above note VS, I&O, 24H, Fishbone Vital Signs/I&O Vital Signs Date Time Temp Pulse Resp B/P (MAP) Pulse Ox O2 Delivery O2 Flow Rate FiO2 10/03/18 16:00 99.0 102 18 131/60 (83) 96 09/30/18 18:49 Room Air I&O- Last 24 Hours up to 6 AM 10/03/18 06:00 Intake Total 1400 ml Output Total 1230 ml Balance 170 ml Laboratory Data 24H LABS Laboratory Tests 2 10/03/18 05:17: Nucleated Red Blood Cells % (auto) 0.0, Anion Gap 6L, Glomerular Filtration Rate 42.9, Blood Urea Nitrogen 42H, Creatinine 1.64H, Sodium Level 137, Potassium Level 4.4, Chloride Level 107, Carbon Dioxide Level 24, Calcium Level 9.8, Aspartate Amino Transf (AST/SGOT) 60H, Alanine Aminotransferase (ALT/SGPT) 59, Alkaline Phosphatase 138H, Total Bilirubin 0.2, Total Protein 7.1, Albumin 1.9L, Albumin/Globulin Ratio 0.37L CBC/BMP Laboratory Tests 10/03/18 05:17 Red Blood Count 3.31 L, Mean Corpuscular Volume 84.0, Mean Corpuscular Hemoglobin 26.6 L, Mean Corpuscular Hemoglobin Concent 31.7 L, Red Cell Distribution Width 15.9 H, Calcium Level 9.8, Aspartate Amino Transf (AST/SGOT) 60 H, Alanine Aminotransferase (ALT/SGPT) 59, Alkaline Phosphatase 138 H, Total Bilirubin 0.2, Total Protein 7.1, Albumin 1.9 L Microbiology Microbiology 09/30/18 Blood Culture - Preliminary, Resulted No Growth after 48 hours. All Specime... 09/30/18 Blood Culture - Preliminary, Resulted No Growth after 48 hours. All Specime... 09/30/18 Urine Culture - Final, Complete RYAN GIBBS DO Oct 03, 2018 17:40 FRANCO BAIG MD Oct 04, 2018 14:15
[2018-10-03] MEDS: LATANOPROST 0.005% OPHTH SOLN 2.5 ML OU SCH (21:00)
[2018-10-04] MEDS: METOPROLOL TART 25 MG TABLET PO SCH ×4 (00:06→17:23)
[2018-10-04] MEDS: LR 1,000 ML IV SCH (01:06)
[2018-10-04 04:00] VITALS: BP 124/55
[2018-10-04 05:39] LABS: HEMATOCRIT 25.1 % (42.0-52.0); MEAN CORPUSCULAR HEMOGLOBIN 26.6 pg (27.0-33.0); MEAN CORPUSCULAR HGB CONC 31.9 g/dl (32.0-36.5); MEAN CORPUSCULAR VOLUME 83.4 fl (80.0-96.0); PLATELET COUNT, AUTOMATED 334 10^3/uL (150-450); RED BLOOD COUNT 3.01 10^6/uL (4.30-6.10); WHITE BLOOD COUNT 14.3 10^3/uL (4.0-10.0)
[2018-10-04] MEDS: LEVOTHYROXINE 100MCG TABLET (0.1MG) PO SCH (05:43)
[2018-10-04 06:20] LABS: ALBUMIN 1.8 GM/DL (3.2-5.2); BILIRUBIN,TOTAL 0.4 MG/DL (0.2-1.0); CALCIUM LEVEL 9.2 MG/DL (8.8-10.2); CREATININE FOR GFR 1.47 MG/DL (0.70-1.30); GLOMERULAR FILTRATION RATE 48.7 (>35); POTASSIUM SERUM 4.6 MEQ/L (3.5-5.1); TOTAL PROTEIN 6.3 GM/DL (6.4-8.2)
[2018-10-04 08:00] VITALS: BP 140/63
--- NOTE | 2018-10-04 10:42 | IPNPDOC ---
Date Seen The patient was seen on 10/04/18. Progress Note SUBJECTIVE: Reports good improvement in his weakness denies any shakiness any nausea vomiting or diarrhea. OBJECTIVE PHYSICAL EXAMINATION: VITAL SIGNS: Please see below. GENERAL: Pleasant male sitting up in chair appropriately answering questions in no acute distress. HEENT: Temporal wasting bilaterally. NC AT. Moist Mucous membranes. CARDIOVASCULAR: Irregularly irregular rate not tachycardic. No murmurs rubs or gallops were appreciated RESPIRATORY: Clear to auscultation bilaterally. No wheezing rhonchus or rales appreciated ABDOMINAL: Positive bowel sounds. Soft nontender. No CVA tenderness. Mild tenderness to palpation in suprapubic region. EXTREMITIES: No lower extremity edema noted. No cyanosis or rashes. NEUROLOGICAL: No focal deficits PSYCHOLOGICAL: Appropriate LABORATORY DATA, IMAGING STUDIES, MICROBIOLOGY: Please see below. 1. Abdomen/pelvis CT 09/30/18: 9 cm suspicious mass upper pole left kidney consistent with renal cell carcinoma. Findings suspicious for regional adenopathy and left renal vein tumor thrombus. Possible large metastatic lesion in the left lobe of the liver versus regional fat infiltration. Recommend hepatic sonography. There are indeterminate subcentimeter pulmonary nodules in the right lower lobe of the lung. Ileus versus enteritis pattern in the bowel gas. Cholelithiasis. Multiple right and left renal cysts. 2. Brain MRI 10/01/18: 1. No acute ischemia or infarction. 2. 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 Echocardiogram: 1. Study is of fair technical quality. 2. Preserved LV size with mild LVH and grossly preserved LV systolic function. Unable to determine diastolic function. 3. Aortic sclerosis with trivial stenosis. 4. Likely normal central venous pressure. 5. Unable to estimate pulmonary artery pressure. DVT prophylaxis ordered?: TEDs and SCDs. Holding anticoagulation due to bleeding. ASSESSMENT AND PLAN: Patient is a 83-year-old likely renal cell carcinoma with extension into the renal vein with numerous metastatic lesions who presents with acute renal failure and weakness in addition to new atrial fibrillation with rapid ventricular response. PROBLEMS: Atrial fibrillation with RVR: I will titrate up his metoprolol to 25 mg every 6 hours he is better rate controlled at this time. We're holding anticoagulation in the setting of hematuria and possible upcoming procedures echocardiogram completed TSH within normal limits Renal cell carcinoma stage IV with likely liver metastases: Prognosis is somewhat poor he'll follow him closely with [facility] Dr. 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 At this time no further nausea and vomiting, he was certainly dehydrated at the time of this presentation which has resolved Iron deficiency anemia Resume supplementation upon discharge Hypothyroidism -c/w levothyroxine Hypertension: (Controlled) -holding home lisinopril and amlodipine -c/w metoprolol titration for rate control for A. fib. Dyslipidemia -holding home meds consider resumption upon discharge -AST and Alkaline phosphatase elevated (possibly due to liver lesion) -Albumin is low likely secondary to malignancy Disposition: Pending PT clearance likely home with the next 24-48 hours VS, I&O, 24H, Fishbone Vital Signs/I&O Vital Signs Date Time Temp Pulse Resp B/P (MAP) Pulse Ox O2 Delivery O2 Flow Rate FiO2 10/04/18 08:00 97.6 53 16 140/63 (88) 99 09/30/18 18:49 Room Air I&O- Last 24 Hours up to 6 AM 10/04/18 06:00 Intake Total 2100 ml Output Total 500 ml Balance 1600 ml Laboratory Data 24H LABS Laboratory Tests 2 10/04/18 05:03: Nucleated Red Blood Cells % (auto) 0.0, Anion Gap 7L, Glomerular Filtration Rate 48.7, Blood Urea Nitrogen 34H, Creatinine 1.47H, Sodium Level 139, Potassium Level 4.6, Chloride Level 107, Carbon Dioxide Level 25, Calcium Level 9.2, Aspartate Amino Transf (AST/SGOT) 82H, Alanine Aminotransferase (ALT/SGPT) 75, Alkaline Phosphatase 147H, Total Bilirubin 0.4#, Total Protein 6.3L, Albumin 1.8L, Albumin/Globulin Ratio 0.40L CBC/BMP Laboratory Tests 10/04/18 05:03 Red Blood Count 3.01 L, Mean Corpuscular Volume 83.4, Mean Corpuscular Hemoglobin 26.6 L, Mean Corpuscular Hemoglobin Concent 31.9 L, Red Cell Distribution Width 15.9 H, Calcium Level 9.2, Aspartate Amino Transf (AST/SGOT) 82 H, Alanine Aminotransferase (ALT/SGPT) 75, Alkaline Phosphatase 147 H, Total Bilirubin 0.4 #, Total Protein 6.3 L, Albumin 1.8 L Microbiology Microbiology 09/30/18 Blood Culture - Preliminary, Resulted No Growth after 72 hours. All specime... 09/30/18 Blood Culture - Preliminary, Resulted No Growth after 72 hours. All specime... 10/04/18 Stool Occult Blood (OPAL), Received Pending 09/30/18 Urine Culture - Final, Complete FRANCO BAIG MD Oct 04, 2018 10:42
[2018-10-04 11:27] VITALS: BP 102/58
[2018-10-04 15:48] VITALS: BP 125/53
[2018-10-04 20:00] VITALS: BP 111/76
[2018-10-04] MEDS: LATANOPROST 0.005% OPHTH SOLN 2.5 ML OU SCH (21:00)
[2018-10-04 23:59] VITALS: BP 138/82
[2018-10-05] MEDS: METOPROLOL TART 25 MG TABLET PO SCH ×3 (00:16→13:07)
[2018-10-05 04:00] VITALS: BP 137/63
[2018-10-05 04:35] LABS: HEMATOCRIT 25.3 % (42.0-52.0); MEAN CORPUSCULAR HGB CONC 31.6 g/dl (32.0-36.5); MEAN CORPUSCULAR VOLUME 82.1 fl (80.0-96.0); PLATELET COUNT, AUTOMATED 378 10^3/uL (150-450); RED BLOOD COUNT 3.08 10^6/uL (4.30-6.10); WHITE BLOOD COUNT 16.3 10^3/uL (4.0-10.0)
[2018-10-05 04:46] LABS: ALBUMIN 1.8 GM/DL (3.2-5.2); BILIRUBIN,TOTAL 0.3 MG/DL (0.2-1.0); CREATININE FOR GFR 1.51 MG/DL (0.70-1.30); GLOMERULAR FILTRATION RATE 47.2 (>35); POTASSIUM SERUM 4.6 MEQ/L (3.5-5.1); TOTAL PROTEIN 6.8 GM/DL (6.4-8.2)
[2018-10-05] MEDS: LEVOTHYROXINE 100MCG TABLET (0.1MG) PO SCH (06:01)
[2018-10-05 08:00] VITALS: BP 116/60
[2018-10-05] MEDS ORDERED: METO50TA7 PO (11:27)
[2018-10-05 12:00] VITALS: BP 120/58
[2018-10-05 13:07] VITALS: BP 120/58
--- NOTE | 2018-10-05 17:07 | DS.PDOC ---
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 CONSULTANTS: NONE HOSPITAL COURSE: The patient was admitted he was placed on the PCU with telemetry. His atrial fibrillation RVR was rate controlled with beta blockers. Anticoagulation was discontinued for he had hematuria. We advised to follow-up with his primary care provider when to resume. For his complaint of weakness, PT was consulted and it was recommended that he continue with home PT upon discharge. For his failure to thrive his meals were supplemented ensures which hell continue outpatient. His hypertensive medications were discontinued upon discharge and advised that he follows up with his primary care is either one should be resumed after being reevaluated. Lastly for his remaining medical pr oblems all his medications were resumed. DISCHARGE MEDICATIONS: Please see below. ALLERGIES: Please see below. SUBJECTIVE: Patient 83-year-old white male presented to ER with weakness. He has no complaints at this time and No overnight events reported. Patient denies chest pain, shortness breath, nausea, vomiting, fevers, chills OBJECTIVE: PHYSICAL EXAMINATION: VITAL SIGNS: Please see below. GENERAL: An 83-year-old male laying in bed appropriately answering questions in no acute distress. He is in a pleasant mood. HEENT: Temporal wasting bilaterally. NC AT. Mucous membranes are dry. Eyes are sunken. With prominent SCM, atrophy clavicular fat pad and prominent clavicular heads bilaterally. CARDIOVASCULAR: Irregularly irregular rate tachycardic. No murmurs rubs or gallops were appreciated RESPIRATORY: Clear to auscultation bilaterally. No wheezing rhonchus or rales appreciated ABDOMINAL: Positive bowel sounds. Slight tenderness in the epigastric area with deep palpation. No CVA tenderness. Mild tenderness to palpation in suprapubic region. EXTREMITIES: No lower extremity edema noted. No cyanosis or rashes. NEUROLOGICAL: Slight lag with visual tracking horizontally bilaterally. Slight intention tremor but no dysarthria or Dysdiodochokinesia noted. Muscle strength 5 out of 5 in the upper extremities. Sensation intact in the upper and lower extremities. PSYCHOLOGICAL: Some cognitive decline. LABORATORY DATA, MICROBIOLOGY: Please see below. IMAGING STUDIES: 1. Abdomen/pelvis CT 09/30/18: 9 cm suspicious mass upper pole left kidney consistent with renal cell carcinoma. Findings suspicious for regional adenopathy and left renal vein tumor thrombus. Possible large metastatic lesion in the left lobe of the liver versus regional fat infiltration. Recommend hepatic sonography. There are indeterminate subcentimeter pulmonary nodules in the right lower lobe of the lung. Ileus versus enteritis pattern in the bowel gas. Cholelithiasis. Multiple right and left renal cysts. 2. Brain MRI 10/01/18: 1. No acute ischemia or infarction. 2. 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 ECHOCARDIOGRAM: 1. Study is of fair technical quality. 2. Preserved LV size with mild LVH and grossly preserved LV systolic function. Unable to determine diastolic function. 3. Aortic sclerosis with trivial stenosis. 4. Likely normal central venous pressure. 5. Unable to estimate pulmonary artery pressure. DVT prophylaxis ordered: TEDs and SCDs Discharge Instruction: 1. Follow-up with primary care provider in 7-10 days 2. Keep appointment with oncology for biopsy the 3. 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 If symptoms return or worsen please call your PCP or return to the ER. DISPOSITION: Home DISCHARGE CONDITION: Improved and Stable. PROGNOSIS: Poor FOLLOW UP: Follow-up with primary care provider in 7-10 days ACTIVITY: As prior to admission. HOME PT DIET: As prior to admission but supplemented with strawberry Ensure TIME SPENT ON DISCHARGE: 50 minutes Vital Signs/I&Os Vital Signs Date Time Temp Pulse Resp B/P (MAP) Pulse Ox O2 Delivery O2 Flow Rate FiO2 10/05/18 13:07 87 120/58 10/05/18 12:00 98.2 16 98 09/30/18 18:49 Room Air I&O- Last 24 Hours up to 6 AM 10/05/18 06:00 Intake Total 840 ml Output Total 950 ml Balance -110 ml Laboratory Data Labs 24H Laboratory Tests 2 10/05/18 04:02: Nucleated Red Blood Cells % (auto) 0.0, Anion Gap 9, Glomerular Filtration Rate 47.2, Blood Urea Nitrogen 34H, Creatinine 1.51H, Sodium Level 139, Potassium Level 4.6, Chloride Level 105, Carbon Dioxide Level 25, Calcium Level 9.0, Aspartate Amino Transf (AST/SGOT) 171H, Alanine Aminotransferase (ALT/SGPT) 141H, Alkaline Phosphatase 199H, Total Bilirubin 0.3, Total Protein 6.8, Albumin 1.8L, Albumin/Globulin Ratio 0.36L CBC/BMP Laboratory Tests 10/05/18 04:02 Red Blood Count 3.08 L, Mean Corpuscular Volume 82.1, Mean Corpuscular Hemoglobin 26.0 L, Mean Corpuscular Hemoglobin Concent 31.6 L, Red Cell Distribution Width 16.1 H, Calcium Level 9.0, Aspartate Amino Transf (AST/SGOT) 171 H, Alanine Aminotransferase (ALT/SGPT) 141 H, Alkaline Phosphatase 199 H, Total Bilirubin 0.3, Total Protein 6.8, Albumin 1.8 L Microbiology Microbiology 09/30/18 Blood Culture - Preliminary, Resulted No Growth after 72 hours. All specime... 09/30/18 Blood Culture - Preliminary, Resulted No Growth after 72 hours. All specime... 10/04/18 Stool Occult Blood (OPAL) - Final, Complete 09/30/18 Urine Culture - Final, Complete Discharge Medications Scheduled Ferrous Sulfate (Ferrous Sulfate) 324 Mg Tablet.dr, 324 MG PO Q2D, (Reported) Levothyroxine Sodium (Synthroid) 100 Mcg Tablet, 100 MCG PO DAILY, (Reported) Metoprolol Tartrate (Metoprolol Tartrate) 50 Mg Tablet, 1 TAB PO BID Rosuvastatin Calcium (Rosuvastatin Calcium) 40 Mg Tablet, 40 MG PO DAILY, (Reported) Scheduled PRN Sennosides/Docusate Sodium (Senna-S Tablet) 1 Each Tablet, 2 TAB PO DAILY PRN for CONSTIPATION, (Reported) Allergies Coded Allergies: No Known Allergies (Unverified , 09/30/18) RYAN GIBBS DO Oct 05, 2018 17:06
== END 2018-10-05 17:03 | disposition home health service (06) | DRG 309 ==
LOC: M ED 12:18 → M ED INP 17:07 → M PCU 19:01
PROVIDERS: ADMIT Internal Medicine; ATTEND Internal Medicine
DX: I48.91 Unspecified atrial fibrillation (principal); C64.2 Malignant neoplasm of left kidney, except renal pelvis; C78.7 Secondary malignant neoplasm of liver and intrahepatic bile duct; R64 Cachexia; N17.9 Acute kidney failure, unspecified; I25.10 Atherosclerotic heart disease of native coronary artery without angina pectoris; R26.81 Unsteadiness on feet; E86.0 Dehydration; I12.9 Hypertensive chronic kidney disease with stage 1 through stage 4 chronic kidney disease, or unspecified chronic kidney disease; E78.5 Hyperlipidemia, unspecified; N18.9 Chronic kidney disease, unspecified; E03.9 Hypothyroidism, unspecified; D50.9 Iron deficiency anemia, unspecified; Z85.828 Personal history of other malignant neoplasm of skin; Z85.46 Personal history of malignant neoplasm of prostate; Z87.891 Personal history of nicotine dependence; Z79.899 Other long term (current) drug therapy; Z95.5 Presence of coronary angioplasty implant and graft

== ENCOUNTER 2018-10-17 11:40 | Inpatient (IN) | payer MEDICARE, BC ==
[~2018-10-17] VITALS: Ht 190.5 cm; Wt 82.1 kg
[~2018-10-17 11:40] MED LIST: AMLO5TAB6 PO; FERR324T2 PO; LISI-538 PO; METO1TAB87 PO; METO50TA7 PO; ROSU40TA4 PO; SENN-23 PO; SYNT100T PO
[2018-10-17] MEDS ORDERED: AMLO5TAB6 PO (11:57)
--- NOTE | 2018-10-17 12:50 | REP ---
Clinical: Weakness and hallucinations . Findings: Atrophy and periventricular leukomalacia and microvascular ischemic changes are appreciated. The ventricles and sulci are symmetric. Patiño-white differentiation is maintained. There is no evidence for acute intracranial hemorrhage, mass/mass effect, pathology or infarction. No extra-axial fluid collection. Calvarium is intact. Paranasal sinuses and mastoid air cells are clear. Impression: Atrophy and microvascular ischemic changes. No acute intracranial hemorrhage, infarction, or mass/mass effect. Electronically Signed by Kd Mayfield MD 10/17/2018 12:42 P
--- NOTE | 2018-10-17 13:00 | REP ---
Clinical: Generalized weakness. Technique: AP and cross-table lateral views of the chest. Comparison: 06/29/2018. Findings: Mediastinum and cardiac silhouette are stable and within normal limits for portable technique. Lung hernandez demonstrate diffuse chronic interstitial changes. Left lower lobe/retrocardiac infiltrate and atelectasis cannot be excluded. No obvious effusion. No pneumothorax. Skeletal structures demonstrate age-related degenerative changes. Impression: Suspected left lower lobe/retrocardiac infiltrate and atelectasis. Clinical correlation recommended. Electronically Signed by Kd Mayfield MD 10/17/2018 12:52 P
[2018-10-17 14:20] LABS: BASO # 0.1 10^3/uL (0.0-0.2); BASO % 0.3 % (0.0-1.0); EOS # 0.1 10^3/uL (0.0-0.50); EOS % 0.5 % (0.0-3.0); HEMATOCRIT 28.5 % (42.0-52.0); HEMOGLOBIN 8.9 g/dl (13.5-17.5); LYMPH # 0.9 10^3/uL (1.5-4.5); LYMPH % 5.8 % (24.0-44.0); MEAN CORPUSCULAR HEMOGLOBIN 26.5 pg (27.0-33.0); MEAN CORPUSCULAR HGB CONC 31.2 g/dl (32.0-36.5); MEAN CORPUSCULAR VOLUME 84.8 fl (80.0-96.0); MONO # 1.6 10^3/uL (0.0-0.8); MONO % 10.1 % (0.0-5.0); NEUTROPHILS # 12.9 10^3/uL (1.8-7.7); NEUTROPHILS % 82.3 % (36.0-66.0); PLATELET COUNT, AUTOMATED 374 10^3/uL (150-450); RED BLOOD COUNT 3.36 10^6/uL (4.30-6.10); WHITE BLOOD COUNT 15.7 10^3/uL (4.0-10.0)
[2018-10-17 14:48] LABS: ALBUMIN 1.6 GM/DL (3.2-5.2); ALT/SGPT 81 U/L (12-78); BILIRUBIN,DIRECT 0.2 MG/DL (0.0-0.2); BILIRUBIN,TOTAL 0.3 MG/DL (0.2-1.0); BLOOD UREA NITROGEN 35 MG/DL (7-18); CALCIUM LEVEL 9.1 MG/DL (8.8-10.2); CARBON DIOXIDE LEVEL 24 MEQ/L (21-32); CHLORIDE LEVEL 107 MEQ/L (98-107); CK-MB VALUE MASS < 1.0 NG/ML (<3.6); CPK CREATINE PHOSPHOKINASE 14 U/L (39-308); CREATININE FOR GFR 2.05 MG/DL (0.70-1.30); GLOMERULAR FILTRATION RATE 33.2 (>35); GLUCOSE, FASTING 123 MG/DL (70-100); MB/CK RELATIVE INDEX 7.14 (< OR =4); POTASSIUM SERUM 4.4 MEQ/L (3.5-5.1); SODIUM LEVEL 137 MEQ/L (136-145); TOTAL PROTEIN 7.2 GM/DL (6.4-8.2); TROPONIN I 0.09 NG/ML (< 0.10)
[2018-10-17] MEDS ORDERED: ACETAMINOPHEN TAB 650MG DOSE (2X325MG) PO PRN (15:45)
[2018-10-17] MEDS ORDERED: MAALOX 30 ML SUSP *UDC PO PRN (15:45)
[2018-10-17] MEDS ORDERED: MOM 30ML SUSPENSION UDC PO PRN (15:45)
[2018-10-17] MEDS ORDERED: VANCOMYCIN HCL 1,000 MG, VIAL MATE ADAPTER 1 EACH in D5W 250 ML IV ONE (15:45)
[2018-10-17] MEDS ORDERED: PIPERACILLIN/TAZOBACTAM SOD 2.25 GM in D5W MINI-BAG PLUS 50 ML IV ONE (15:45)
[2018-10-17] MEDS ORDERED: NS 1,000 ML IV SCH ×2 (16:00→16:30)
[2018-10-17] MEDS ORDERED: METO50TA7 PO (16:05)
[2018-10-17] MEDS ORDERED: ACET-908 PO (16:11)
[2018-10-17 18:42] VITALS: BP 129/57
[2018-10-17] MEDS ORDERED: SENOKOT S TAB PO PRN (19:45)
[2018-10-17] MEDS: IPRATROPIUM 0.5MG/ALBUTEROL 2.5MG INH SOL UD 3ML (DUONEB)(J7620) NEB SCH (19:55)
--- NOTE | 2018-10-17 19:59 | HPEPDOC ---
General Date of Admission 10/17/18 Date of Service: Oct 17, 2018 Primary Care Physician: ESVIN STAPLES M.D. Attending Physician: NI FLANAGAN DO Chief Complaint The patient is a 83-year-old male admitted with a reason for visit of Weakness. Source: Patient, Family Exam Limitations: Mild cognitive slowing, Other (hallucinations) History of Present Illness 83 yo male with renal cell carcinoma stage IV with mets to liver was recently discharged on 10/05/18 with afib RVR to home. and neice present and states home health came out to house to do interview, but no services started. Patient continued to get gradually weaker and over past 5 days was unable to use walker. They states over past 2 days he has fallen and yesterday, was unable to help him get off toilet because he was weak. and neice states patient has intermittent penile blood. This morning he had brown urine (small amount) and 2 copious diarrhea watery brown stools with blood in toilet bowl (they state not sure if blood from bowel or penis). He has been increased sleeping for past week. He has had chronic cough since august but worse over past 2-4 days with post tussis emesis. Cough worse when using straw to drink. During H&P patient had visual hallucinations (flies in room, cats on the floor, etc). states he has been having hallucinations over past "few" week (including while he was hospitalized) . There are no fevers, no nausea; + weight loss and poor appetite, increased sleeping. and neice are interested in hospice for patient and state they can no longer care for him at home. states patient had liver biopsy performed on 10/08 and they have appointment with Dr Sims next week to review results. In the ED, patient was found to have elevated creatinine and CXR with LLL infiltrate suspicious for HCAP Home Medications Scheduled Amlodipine Besylate (Amlodipine Besylate) 5 Mg Tablet, 5 MG PO DAILY, (Reported) Ferrous Sulfate (Ferrous Sulfate) 324 Mg Tablet., 324 MG PO Q2D, (Reported) Levothyroxine Sodium (Synthroid) 100 Mcg Tablet, 100 MCG PO DAILY, (Reported) Metoprolol Tartrate (Metoprolol Tartrate) 50 Mg Tablet, 50 MG PO BID, (Reported) Rosuvastatin Calcium (Rosuvastatin Calcium) 40 Mg Tablet, 40 MG PO DAILY, (Reported) Scheduled PRN Acetaminophen (Acetaminophen) 325 Mg Tablet, 650 MG PO Q4H PRN for PAIN / FEVER, (Reported) Sennosides/Docusate Sodium (Senna-S Tablet) 1 Each Tablet, 2 TAB PO DAILY PRN for CONSTIPATION, (Reported) Allergies Coded Allergies: No Known Allergies (Unverified , 10/17/18) Past Medical History Medical History 1. Coronary artery disease stents 4. 2. Abdominal aortic aneurysm status post endograft repair. 3. Hypertension. 4. Prostate cancer treated with " freezing" 5 arthritis 6 dyslipidemia 7 hypothyroidism 8 iron deficiency anemia 9 basal cell carcinoma the face 10 A fib RVR PAST SURGICAL HISTORY: 1. Bilateral hip repair. 2. Aortic graft for abdominal aortic aneurysm. 3. Basal cell carcinoma of the face . 4. Liver biopsy 10/08/18 SOCIAL HISTORY: , Lives with ; Former smoker in the distant past [id number]. no EtOH use. FAMILY HISTORY: mother post cardiac complications, father from brain tumor A-FIB/CHADSVASC A-FIB History Current/History of A-Fib/PAF?: Yes Current PO Anticoag Therapy: No Age/Risk Factor Scoring CHADSVASC: CHADSVASC Response (Comments) Value Age Risk Factor Age >/= 75 years old 2 Gender Risk Factor Male 0 Hx of CHF No 0 Hx of HTN Yes 1 Hx of Stroke/TIA/or VTE No 0 Hx of Diabetes No 0 Hx of Vascular Disease No 0 Total 3 Treatment Treatment ordered: NONE Reason Anticoagulant not given: Current bleeding Review of Systems Constitutional: Reports: Malaise, Weakness, Fatigue, Weight Loss, Lethargy Eyes: Reports: Other (visual hallucinations) ENT: Reports: Dysphagia Pulmonary: Reports: Dyspnea, Cough Gastrointestinal: Reports: Vomiting, Diarrhea, Melena, Hematochezia Genitourinary: Reports: Incontinence, Hematuria, Retention Neurological: Reports: Weakness, Incoordination, Confusion Other systems 10 systems reviewed and negative except as listed above or in HPI Physical Examination General Exam: Positive: Alert, Cooperative, No Acute Distress Eye Exam: Positive: PERRLA, Conjunctiva & lids normal, EOMI ENT Exam: Positive: Atraumatic, Mucous membr. moist/pink Neck Exam: Positive: Supple, +2 carotid pulse wo bruit Chest Exam: Positive: Clear to auscultation, Rhonchi (bibase left more than right), Diminished; Negative: Rales, Wheezing Heart Exam: Positive: Rate Normal, Irregular Rhythm, Other (no murmur) Telemetry: Positive: Atrial fibrillation (rate controlled) Abdomen Exam: Positive: Normal bowel sounds, Soft (NT ND ) Extremity Exam: Positive: Clubbing, Normal pulses; Negative: Cyanosis, Edema Skin Exam: Positive: Nl turgor and temperature Neuro Exam: Positive: Normal Speech, Strength at 5/5 X4 ext, Normal Tone, Sensation Intact Psych Exam: Positive: Mental status NL (except for visual hallucinations (cats and flies in room with independent eye exam )), Memory Intact, Oriented x 3 Other physical findings EKG RBBB with underlying afib/flutter 82 Vital Signs Vital Signs Date Time Temp Pulse Resp B/P (MAP) Pulse Ox O2 Delivery O2 Flow Rate FiO2 10/17/18 12:04 Room Air 10/17/18 11:45 98.8 72 20 112/61 97 Laboratory Data Labs 24H IMAGING: CXR images visualized and LLL subtle infiltrate compared to prior admission CT HEAD: Impression: Atrophy and microvascular ischemic changes. No acute intracranial hemorrhage, infarction, or mass/mass effect. Laboratory Tests 2 10/17/18 12:13: Immature Granulocyte % (Auto) 1.0, White Blood Count 15.7H, Red Blood Count 3.36L, Hemoglobin 8.9L, Hematocrit 28.5L, Mean Corpuscular Volume 84.8, Mean Corpuscular Hemoglobin 26.5L, Mean Corpuscular Hemoglobin Concent 31.2L, Red Cell Distribution Width 16.1H, Platelet Count 374, Neutrophils (%) (Auto) 82.3H, Lymphocytes (%) (Auto) 5.8L, Monocytes (%) (Auto) 10.1H, Eosinophils (%) (Auto) 0.5, Basophils (%) (Auto) 0.3, Neutrophils # (Auto) 12.9H, Lymphocytes # (Auto) 0.9L, Monocytes # (Auto) 1.6H, Eosinophils # (Auto) 0.1, Basophils # (Auto) 0.1, Nucleated Red Blood Cells % (auto) 0.0 10/17/18 13:54: Anion Gap 6L, Glomerular Filtration Rate 33.2L, Calcium Level 9.1, Aspartate Amino Transf (AST/SGOT) 81H, Alanine Aminotransferase (ALT/SGPT) 81H, Alkaline Phosphatase 289H, Total Bilirubin 0.3, Direct Bilirubin 0.2, Total Creatine Kinase 14L, Creatine Kinase MB < 1.0, Creatine Kinase MB Relative Index 7.14H, Troponin I 0.09, Total Protein 7.2, Albumin 1.6L, Albumin/Globulin Ratio 0.29L, Thyroid Stimulating Hormone (TSH) 2.780 10/17/18 14:16: Urine Color YELLOW, Urine Appearance CLEAR, Urine pH 5.0, Urine Specific Thomas 1.017, Urine Protein 2+H, Urine Glucose (UA) NEGATIVE, Urine Ketones NEGATIVE, Urine Blood 3+H, Urine Nitrite NEGATIVE, Urine Bilirubin NEGATIVE, Urine Urobilinogen 0.2, Urine Leukocyte Esterase TRACEH, Urine WBC (Auto) 24H, Urine RBC (Auto) TNTCH, Urine Hyaline Casts (Auto) 0, Urine Bacteria (Auto) NEGATIVE, Urine Squamous Epithelial Cells 0, Urine Sperm (Auto) CBC/BMP Laboratory Tests 10/17/18 12:13 Red Blood Count 3.36 L, Mean Corpuscular Volume 84.8, Mean Corpuscular Hemoglobin 26.5 L, Mean Corpuscular Hemoglobin Concent 31.2 L, Red Cell Distribution Width 16.1 H, Neutrophils (%) (Auto) 82.3 H, Lymphocytes (%) (Auto) 5.8 L, Monocytes (%) (Auto) 10.1 H, Eosinophils (%) (Auto) 0.5, Basophils (%) (Auto) 0.3, Neutrophils # (Auto) 12.9 H, Lymphocytes # (Auto) 0.9 L, Monocytes # (Auto) 1.6 H, Eosinophils # (Auto) 0.1, Basophils # (Auto) 0.1 10/17/18 13:54 Microbiology Microbiology 10/17/18 Urine Culture, Received Pending Assessment/Plan HCAP presumed bacterial - given vanc/zosyn in ED. BC/Sputum culture pending. Will continue with cefepime /vanc and monitor vanc for renal toxicity (high decision making), IS,PEP, nebs, mucinex LEEANN with CKD stage III - gentle IVF. Plummer cath. repeat Creat. Debility and weakness - secondary to PNA and metastatic Renal cell carcinomna - stage IV - PT/OT/ST consulted. states she is unable to care for patient at home and interested in SNU or hospice. Metastatic renal cell CA stage IV with probable liver mets - liver biopsy done 10/08 and report requested from anita. Patient and family interested in speaking to Hospice. Iron deficiency anemia due to intermittent chronic hematuria - continue iron. work up in progress as outpatient Essential HTN - continue present regimen with hold parameters (norvasc/metoprolol) ' Afib paroxysmal - continue metoprolol with hold parameters. Diarrhea - check stool for cultures,O&P,etc; Hold stool softners Hypothyroid - continue home regimen CODE STATUS: DNR/DNI - MOLST in chart DVT prophylaxis: SCD , renal dose enoxaprin. If bleeding reoccurs or thrombocytopenia - hold enoxaprin Plan / VTE VTE Prophylaxis Ordered?: Yes NI FLANAGAN DO Oct 17, 2018 15:35
[2018-10-17] MEDS: VANCOMYCIN HCL 1,000 MG, VIAL MATE ADAPTER 1 EACH in D5W 250 ML IV SCH (20:53)
[2018-10-17] MEDS: guaiFENesin ER 600 MG TAB PO SCH (20:53)
[2018-10-17] MEDS: METOPROLOL TART 50 MG TAB PO SCH (20:54)
[2018-10-17] MEDS: DOCUSATE SODIUM 100 MG CAP PO SCH (20:54)
[2018-10-17 22:00] VITALS: BP 137/55
[2018-10-17] MEDS: CEFEPIME HCL 2 GM in D5W MINI-BAG PLUS 50 ML IV SCH (22:11)
[2018-10-18] MEDS: IPRATROPIUM 0.5MG/ALBUTEROL 2.5MG INH SOL UD 3ML (DUONEB)(J7620) NEB SCH ×3 (01:33→20:21)
[2018-10-18 06:00] VITALS: BP 134/70
[2018-10-18] MEDS: LEVOTHYROXINE 100MCG TABLET (0.1MG) PO SCH (06:20)
--- NOTE | 2018-10-18 07:14 | ECGEPIP ---
[facility] - ED Test Date: 2018-10-17 Pat Name: NGHIA MARTINS Department: Room: [place] [address] Gender: Male Registered Nurse Ambulatory: : 1935 Requested By: PARAS Ortiz Order Number: [id number] Reading MD: Krystle Mayen Measurements Intervals [place] Rate: 82 P: [place]: 0 QRS: -49 QRSD: 121 T: 3 QT: 392 QTc: 460 Interpretive Statements ATRIAL FLUTTER/TACHYCARDIA MARKED LEFT AXIS DEVIATION RIGHT BUNDLE BRANCH BLOCK LOW VOLTAGE LIMB PRWP DECREASED RATE 10/01/18 Electronically Signed on 10-18-2018 7:13:33 EDT by Krystle Mayen
[2018-10-18 07:19] LABS: HEMATOCRIT 24.9 % (42.0-52.0); HEMOGLOBIN 7.7 g/dl (13.5-17.5); MEAN CORPUSCULAR HEMOGLOBIN 24.9 pg (27.0-33.0); MEAN CORPUSCULAR HGB CONC 30.9 g/dl (32.0-36.5); MEAN CORPUSCULAR VOLUME 80.6 fl (80.0-96.0); PLATELET COUNT, AUTOMATED 392 10^3/uL (150-450); RED BLOOD COUNT 3.09 10^6/uL (4.30-6.10); WHITE BLOOD COUNT 19.4 10^3/uL (4.0-10.0)
[2018-10-18 07:47] LABS: ALBUMIN 1.5 GM/DL (3.2-5.2); BILIRUBIN,TOTAL 0.5 MG/DL (0.2-1.0); CALCIUM LEVEL 9.3 MG/DL (8.8-10.2); CREATININE FOR GFR 2.04 MG/DL (0.70-1.30); GLOMERULAR FILTRATION RATE 33.4 (>35); TOTAL PROTEIN 6.7 GM/DL (6.4-8.2)
--- NOTE | 2018-10-18 08:57 | PHACANCOPD ---
PHARMACY VANCOMYCIN DOSING Pt Demographics Demographics Patient Age:83 , Weight:86.600 , Gender: male Adjusted Body Weight Date: 10/18/18, Adjusted Body Weight: Kg Events Past 24 Hours Events Past 24 Hours: YES: Fever; NO: Dialysis, Diuretic Therapy, Change in CrCl, Elevation in WBC, Pending Diagnostics, Pending Procedures, Other Vancomycin Vancomycin indication: HCAP Vancomycin Target Ranges: 15-20 mcg/ml Vancomycin Load Y/N: Yes Load Dose Date Time Vancomycin Load Dose: 1000mg Date: 10/17 Time: ~1630 Vancomycin Dose Date: 10/18/18. Current Vancomycin Dose: [1g IV q12h @21] Intermittent Dosing?: No Labs Labs Item Value Date Time White Blood Count 15.7 10^3/uL H 10/17/18 1213 Creatinine 2.05 MG/DL H 10/17/18 1354 White Blood Count 19.4 10^3/uL H 10/18/18 0651 Creatinine 2.04 MG/DL H 10/18/18 0651 Vital Signs Label Value Date Time Patient Temperature 100.9 degrees F 10/17/18 1842 Temperature Source Oral 10/17/18 1842 Micro Microbiology 10/17/18 Blood Culture, Received Pending 10/17/18 Blood Culture, Received Pending 10/17/18 Urine Culture, Received Pending Creatinine Clearance Date:10/18/18. Creatinine Clearance: [~32 ml/min]. Pending Labs Vanco trough scheduled 10/18 @20:00 Assessment and Plan Maintaining Current Dose?: Yes Reason for dose change: No Dose Change Pharmacist Note Pharmacist Note Date: 10/18/18. Pharmacist note: pt has been started on Vancomycin and zosyn for likely LLL pneumonia. He has recently been diagnosed with renal cell carcinoma. SCr has been stable over the past 24 hours. I started him on vancomycin 1g IV yesterday afternoon followed by 1g q12h dosing which started ~4.5 hours after his first dose. I have a trough scheduled for this evening. We will continue to monitor and follow up with his marcos regalado. Eduardo Diallo Pharm.D. Oct 18, 2018 08:57
[2018-10-18] MEDS: ROSUVASTATIN 10 MG TAB (CRESTOR) PO SCH (09:04)
[2018-10-18] MEDS: DOCUSATE SODIUM 100 MG CAP PO SCH ×2 (09:04→21:41)
[2018-10-18] MEDS: guaiFENesin ER 600 MG TAB PO SCH ×2 (09:05→21:41)
[2018-10-18] MEDS: ENOXAPARIN 30 MG/0.3 ML SYR (J1650) SC SCH (09:05)
[2018-10-18] MEDS: METOPROLOL TART 50 MG TAB PO SCH ×2 (09:05→23:02)
[2018-10-18] MEDS: amLODIPine 5 MG TAB PO SCH (09:05)
[2018-10-18] MEDS: VANCOMYCIN HCL 1,000 MG, VIAL MATE ADAPTER 1 EACH in D5W 250 ML IV SCH ×2 (09:06→21:51)
[2018-10-18] MEDS: CEFEPIME HCL 2 GM in D5W MINI-BAG PLUS 50 ML IV SCH ×2 (11:38→22:58)
--- NOTE | 2018-10-18 12:57 | IPNPDOC ---
Text Note Date of Service The patient was seen on 10/18/18. NOTE S: patient confused this AM. states feeling good and wants to go home and has minimal cough. He is not oriented to place or date but is oriented to person. He states no pain. denies visual hallucinations (flies or cats in room). O:vitals as below General: pleasant , NAD Alert to person only. sitting in chair at bedside Heart - irreg/irreg rate controlled at70 LCTA with diminished breathsounds but no rales/rhonchi . Not taking deep breaths as directed Ext: no edema A/P: HCAP presumed bacterial - given vanc/zosyn in ED. BC/Sputum culture pending. Will continue with cefepime /vanc and monitor vanc for renal toxicity (high decision making), IS,PEP, nebs, mucinex. check CXR in AM LEEANN with CKD stage III - gentle IVF. Plummer cath to f/o post obstructive etiology of LEEANN. no change in creatinine Debility and weakness - secondary to PNA and metastatic Renal cell carcinomna - stage IV - PT/OT/ST consulted. states she is unable to care for patient at home and interested in SNU or hospice. Metastatic renal cell CA stage IV with probable liver mets - liver biopsy done 10/08 and report requested from anita. Patient and family interested in speaking to Hospice. Iron deficiency anemia due to intermittent chronic hematuria - continue iron. work up in progress as outpatient Essential HTN - continue present regimen with hold parameters (norvasc/me toprolol) ' Afib paroxysmal - continue metoprolol with hold parameters. Diarrhea - check stool for cultures,O&P,etc; Hold stool softners Hypothyroid - continue home regimen CODE STATUS: DNR/DNI - MOLST in chart DISPOSITION: states she is unable to care for patient at home and interested in SNU or hospice. VS,Fishbone, I+O VS, Fishbone, I+O Laboratory Tests 10/17/18 12:13 Red Blood Count 3.36 L, Mean Corpuscular Volume 84.8, Mean Corpuscular Hemoglobin 26.5 L, Mean Corpuscular Hemoglobin Concent 31.2 L, Red Cell Distribution Width 16.1 H, Neutrophils (%) (Auto) 82.3 H, Lymphocytes (%) (Auto) 5.8 L, Monocytes (%) (Auto) 10.1 H, Eosinophils (%) (Auto) 0.5, Basophils (%) (Auto) 0.3, Neutrophils # (Auto) 12.9 H, Lymphocytes # (Auto) 0.9 L, Monocytes # (Auto) 1.6 H, Eosinophils # (Auto) 0.1, Basophils # (Auto) 0.1 10/17/18 13:54 10/18/18 06:51 Red Blood Count 3.09 L, Mean Corpuscular Volume 80.6, Mean Corpuscular Hemoglobin 24.9 L, Mean Corpuscular Hemoglobin Concent 30.9 L, Red Cell Distribution Width 16.2 H, Calcium Level 9.3, Aspartate Amino Transf (AST/SGOT) 59 H, Alanine Aminotransferase (ALT/SGPT) 63, Alkaline Phosphatase 265 H, Total Bilirubin 0.5 #, Total Protein 6.7, Albumin 1.5 L Vital Signs Date Time Temp Pulse Resp B/P (MAP) Pulse Ox O2 Delivery O2 Flow Rate FiO2 10/18/18 06:00 97.3 90 18 134/70 (91) 95 10/17/18 17:49 Room Air I&O- Last 24 Hours up to 6 AM 10/18/18 06:00 Intake Total 1170 ml Output Total 975 ml Balance 195 ml NI FLANAGAN DO Oct 18, 2018 08:40
[2018-10-18 14:00] VITALS: BP 102/51
[2018-10-18 22:00] VITALS: BP 107/66
--- NOTE | 2018-10-18 22:07 | PHACANCOPD ---
PHARMACY VANCOMYCIN DOSING Pt Demographics Demographics Patient Age:83 , Weight:86.600 , Gender: male Adjusted Body Weight Date: 10/18/18, Adjusted Body Weight: Kg Events Past 24 Hours Events Past 24 Hours: NO: Dialysis, Diuretic Therapy, Change in CrCl, Fever, Elevation in WBC, Pending Diagnostics, Pending Procedures, Other Vancomycin Vancomycin indication: HCAP Vancomycin Target Ranges: 15-20 mcg/ml Vancomycin Load Y/N: Yes Load Dose Date Time Vancomycin Load Dose: 1000mg Date: 10/17 Time: ~1630 Vancomycin Dose Date: 10/18/18. Current Vancomycin Dose: [1G IV q18H 10/19 @15] Date: 10/18/18. Current Vancomycin Dose: [1g IV q12h @21] Intermittent Dosing?: No Labs Labs Item Value Date Time White Blood Count 15.7 10^3/uL H 10/17/18 1213 White Blood Count 19.4 10^3/uL H 10/18/18 0651 Creatinine 2.05 MG/DL H 10/17/18 1354 Creatinine 2.04 MG/DL H 10/18/18 0651 Vancomycin Level Trough 19.9 UG/ML 10/18/18 2041 Micro Microbiology 10/17/18 Blood Culture - Preliminary, Resulted No growth after 24 hours . All specim... 10/17/18 Blood Culture - Preliminary, Resulted No growth after 24 hours . All specim... 10/17/18 Urine Culture, Received Pending Creatinine Clearance Date:10/18/18. Creatinine Clearance: [~32 ml/min]. Pending Labs Vanco trough scheduled 10/20 @08:00 Assessment and Plan Maintaining Current Dose?: No Reason for dose change: Other Pharmacist Note Pharmacist Note Date: 10/18/18. Pharmacist note: Pt Trough came back this evening @20:41 @ 19.9mcg/ml. Dosing will be changed to 1g vancomycin iv every 18 hours. A trough is scheduled 10/20/18 @ 08:00. We will continue to monitor and adjust the dose as needed. Date: 10/18/18. Pharmacist note: pt has been started on Vancomycin and zosyn for likely LLL pneumonia. He has recently been diagnosed with renal cell carcinoma. SCr has been stable over the past 24 hours. I started him on vancomycin 1g IV yesterday afternoon followed by 1g q12h dosing which started ~4.5 hours after his first dose. I have a trough scheduled for this evening. We will continue to monitor and follow up with his level tonight. HANANE ALEMAN PHARMACY Oct 18, 2018 22:07
[2018-10-19] MEDS: LEVOTHYROXINE 100MCG TABLET (0.1MG) PO SCH (05:23)
[2018-10-19 06:00] VITALS: BP 112/56
[2018-10-19 06:48] LABS: BASO % 0.2 % (0.0-1.0); EOS # 0.1 10^3/uL (0.0-0.5); EOS % 0.3 % (0.0-3.0); HEMOGLOBIN 7.1 g/dl (13.5-17.5); LYMPH # 0.9 10^3/uL (1.5-5.0); LYMPH % 5.2 % (24.0-44.0); MEAN CORPUSCULAR HEMOGLOBIN 24.8 pg (27.0-33.0); MEAN CORPUSCULAR HGB CONC 30.9 g/dl (32.0-36.5); MEAN CORPUSCULAR VOLUME 80.4 fl (80.0-96.0); MONO # 1.5 10^3/uL (0.0-0.8); NEUTROPHILS # 14.1 10^3/uL (1.5-8.5); NEUTROPHILS % 84.4 % (36.0-66.0); PLATELET COUNT, AUTOMATED 369 10^3/uL (150-450); RED BLOOD COUNT 2.86 10^6/uL (4.30-6.10); WHITE BLOOD COUNT 16.7 10^3/uL (4.0-10.0)
[2018-10-19 07:11] LABS: ALBUMIN 1.4 GM/DL (3.2-5.2); BILIRUBIN,TOTAL 0.4 MG/DL (0.2-1.0); CALCIUM LEVEL 9.1 MG/DL (8.8-10.2); CREATININE FOR GFR 2.22 MG/DL (0.70-1.30); GLOMERULAR FILTRATION RATE 30.3 (>35); POTASSIUM SERUM 4.2 MEQ/L (3.5-5.1); TOTAL PROTEIN 6.7 GM/DL (6.4-8.2)
[2018-10-19] MEDS ORDERED: NS 1,000 ML IV SCH ×2 (07:20→12:00)
[2018-10-19] MEDS ORDERED: ACETAMINOPHEN TAB 650MG DOSE (2X325MG) PO ONE (08:00)
[2018-10-19] MEDS ORDERED: diphenhydrAMINE 25 MG CAP PO ONE (08:00)
[2018-10-19] MEDS: IPRATROPIUM 0.5MG/ALBUTEROL 2.5MG INH SOL UD 3ML (DUONEB)(J7620) NEB SCH ×3 (08:25→20:58)
--- NOTE | 2018-10-19 08:32 | REP ---
Clinical: Follow up pneumonia. Technique: PA and lateral. Comparison: 10/17/2018. Findings: Findings suggest left lower lobe/retrocardiac infiltrate and/or atelectasis. Mediastinum and cardiac silhouette are stable. No obvious effusion. No pneumothorax. Skeletal structures stable. Impression: Left lower lobe infiltrate/atelectasis cannot be excluded. Electronically Signed by Kd Mayfield MD 10/19/2018 08:24 A
[2018-10-19] MEDS: DOCUSATE SODIUM 100 MG CAP PO SCH ×2 (09:00→20:51)
[2018-10-19] MEDS: ENOXAPARIN 30 MG/0.3 ML SYR (J1650) SC SCH (09:05)
[2018-10-19] MEDS: CEFEPIME HCL 2 GM in D5W MINI-BAG PLUS 50 ML IV SCH ×2 (09:05→22:58)
[2018-10-19] MEDS: ROSUVASTATIN 10 MG TAB (CRESTOR) PO SCH (09:05)
[2018-10-19] MEDS: amLODIPine 5 MG TAB PO SCH (09:06)
[2018-10-19] MEDS: guaiFENesin ER 600 MG TAB PO SCH ×2 (09:06→20:51)
[2018-10-19] MEDS: FERROUS SULFATE 325MG TAB PO SCH (09:06)
[2018-10-19] MEDS: METOPROLOL TART 50 MG TAB PO SCH ×2 (09:06→20:38)
--- NOTE | 2018-10-19 12:35 | IPNPDOC ---
Text Note Date of Service The patient was seen on 10/19/18. NOTE S:patient states feels better. minimal cough. strength improving and able to sit up in bed without assistance. no CP, no AYON, no N, noV O: vitals as below General: pleasant NAD AAOx3 HRRR LCTA no W/R/R Ext: no edema CXR images reviewed and LLL infiltrate nearly resolved. mild atelectasis, no effusion A/P: HCAP presumed bacterial -IMPROVING - given vanc/zosyn in ED. BC/Sputum culture pending. Will continue with cefepime /vanc and monitor vanc for renal toxicity (high decision making), IS,PEP, nebs, mucinex. Consider changing to augmentin tomorrow if remains afebrile and WBC continues to improve. LEEANN with CKD stage III - gentle IVF. Gee cath to f/o post obstructive etiology of LEEANN. Patient may be transitioning to hospice (once he and family discuss options), therefore will leave gee inplace for now. Debility and weakness - secondary to PNA and metastatic Renal cell carcinomna - stage IV - PT/OT/ST consulted. states she is unable to care for patient at home and interested in SNU or hospice. Metastatic renal cell CA stage IV with probable liver mets - liver biopsy done 10/08 and report requested from anita. Patient and family interested in speaking to Hospice. Iron deficiency anemia due to intermittent chronic hematuria - continue iron. work up in progress as outpatient; transfuse 1 unit pRBC 10/19/18 Essential HTN - continue present regimen with hold parameters (norvasc/metoprolol) ' Afib paroxysmal - continue metoprolol with hold parameters. Diarrhea - check stool for cultures,O&P,etc; Hold stool softners Hypothyroid - continue home regimen CODE STATUS: DNR/DNI - MOLST in chart DISPOSITION: states she is unable to care for patient at home and interested in SNU, rehab or hospice. VS,Fishbone, I+O VS, Fishbone, I+O Laboratory Tests 10/19/18 06:20 Red Blood Count 2.86 L, Mean Corpuscular Volume 80.4, Mean Corpuscular Hemoglobin 24.8 L, Mean Corpuscular Hemoglobin Concent 30.9 L, Red Cell Distribution Width 16.3 H, Neutrophils (%) (Auto) 84.4 H, Lymphocytes (%) (Auto) 5.2 L, Monocytes (%) (Auto) 9.0 H, Eosinophils (%) (Auto) 0.3, Basophils (%) (Auto) 0.2, Neutrophils # (Auto) 14.1 H, Lymphocytes # (Auto) 0.9 L, Monocytes # (Auto) 1.5 H, Eosinophils # (Auto) 0.1, Basophils # (Auto) 0.0, Calcium Level 9.1, Aspartate Amino Transf (AST/SGOT) 46 H, Alanine Aminotransferase (ALT/SGPT) 55, Alkaline Phosphatase 231 H, Total Bilirubin 0.4, Total Protein 6.7, Albumin 1.4 L Vital Signs Date Time Temp Pulse Resp B/P (MAP) Pulse Ox O2 Delivery O2 Flow Rate FiO2 10/18/18 23:02 78 108/64 10/18/18 22:00 97.8 16 95 10/17/18 17:49 Room Air I&O- Last 24 Hours up to 6 AM 10/19/18 06:00 Intake Total 1360 ml Output Total 350 ml Balance 1010 ml NI FLANAGAN DO Oct 19, 2018 07:24
[2018-10-19] MEDS ORDERED: VANCOMYCIN HCL 1,000 MG, VIAL MATE ADAPTER 1 EACH in D5W 250 ML IV SCH ×2 (15:00→21:00)
--- NOTE | 2018-10-19 15:08 | PHACANCOPD ---
PHARMACY VANCOMYCIN DOSING Pt Demographics Demographics Patient Age:83 , Weight:82.500 , Gender: male Adjusted Body Weight Date: 10/18/18, Adjusted Body Weight: Kg Events Past 24 Hours Events Past 24 Hours: YES: Change in CrCl; NO: Dialysis, Diuretic Therapy, Fever, Elevation in WBC, Pending Diagnostics, Pending Procedures, Other Vancomycin Vancomycin indication: HCAP Vancomycin Target Ranges: 15-20 mcg/ml Vancomycin Load Y/N: Yes Load Dose Date Time Vancomycin Load Dose: 1000mg Date: 10/17 Time: ~1630 Vancomycin Dose Date: 10/18/18. Current Vancomycin Dose: [1G IV q18H 10/19 @15] Date: 10/18/18. Current Vancomycin Dose: [1g IV q12h @21] Intermittent Dosing?: No Labs Labs Item Value Date Time White Blood Count 19.4 10^3/uL H 10/18/18 0651 White Blood Count 16.7 10^3/uL H 10/19/18 0620 Vancomycin Level Trough 19.9 UG/ML 10/18/18 2041 Vancomycin Level Trough 20.9 UG/ML H 10/19/18 1415 Creatinine 2.04 MG/DL H 10/18/18 0651 Creatinine 2.22 MG/DL H 10/19/18 0620 Micro Microbiology 10/17/18 Blood Culture - Preliminary, Resulted No growth after 24 hours . All specim... 10/17/18 Blood Culture - Preliminary, Resulted No growth after 24 hours . All specim... 10/17/18 Urine Culture - Final, Complete Creatinine Clearance Date:10/19/18. Creatinine Clearance: [~30 ml/min]. Date:10/18/18. Creatinine Clearance: [~32 ml/min]. Assessment and Plan Maintaining Current Dose?: No Reason for dose change: Trough too high Pharmacist Note Pharmacist Note Date: 10/19/18. Pharmacist note: vanco trough drawn today ~45 min before the dose was high @20.9 mcg/ml. SCr was elevated today. I have reduced his dose to 1g q24h. No positive cultures to date. We will continue to monitor and make adjustments as needed. Date: 10/18/18. Pharmacist note: Pt Trough came back this evening @20:41 @ 19.9mcg/ml. Dosing will be changed to 1g vancomycin iv every 18 hours. A trough is scheduled 10/20/18 @ 08:00. We will continue to monitor and adjust the dose as needed. Date: 10/18/18. Pharmacist note: pt has been started on Vancomycin and zosyn for likely LLL pneumonia. He has recently been diagnosed with renal cell carcinoma. SCr has been stable over the past 24 hours. I started him on vancomycin 1g IV yesterday afternoon followed by 1g q12h dosing which started ~4.5 hours after his first dose. I have a trough scheduled for this evening. We will continue to monitor and follow up with his marcos regalado. Eduardo Diallo Pharm.D. Oct 19, 2018 15:08
[2018-10-19 22:00] VITALS: BP 102/53
[2018-10-20 06:00] VITALS: BP 121/57
[2018-10-20] MEDS: LEVOTHYROXINE 100MCG TABLET (0.1MG) PO SCH (06:06)
[2018-10-20 06:34] LABS: HEMATOCRIT 25.5 % (42.0-52.0); HEMOGLOBIN 8.2 g/dl (13.5-17.5); MEAN CORPUSCULAR HEMOGLOBIN 26.5 pg (27.0-33.0); MEAN CORPUSCULAR HGB CONC 32.2 g/dl (32.0-36.5); MEAN CORPUSCULAR VOLUME 82.3 fl (80.0-96.0); PLATELET COUNT, AUTOMATED 345 10^3/uL (150-450); WHITE BLOOD COUNT 18.3 10^3/uL (4.0-10.0)
[2018-10-20 06:59] LABS: ALBUMIN 1.3 GM/DL (3.2-5.2); BILIRUBIN,TOTAL 0.4 MG/DL (0.2-1.0); CALCIUM LEVEL 8.9 MG/DL (8.8-10.2); CREATININE FOR GFR 2.28 MG/DL (0.70-1.30); GLOMERULAR FILTRATION RATE 29.3 (>35); POTASSIUM SERUM 4.5 MEQ/L (3.5-5.1); TOTAL PROTEIN 6.5 GM/DL (6.4-8.2)
[2018-10-20] MEDS: IPRATROPIUM 0.5MG/ALBUTEROL 2.5MG INH SOL UD 3ML (DUONEB)(J7620) NEB SCH ×3 (07:11→20:30)
[2018-10-20] MEDS: ENOXAPARIN 30 MG/0.3 ML SYR (J1650) SC SCH (08:58)
[2018-10-20] MEDS: ROSUVASTATIN 10 MG TAB (CRESTOR) PO SCH (08:58)
[2018-10-20] MEDS: guaiFENesin ER 600 MG TAB PO SCH ×2 (08:58→20:05)
[2018-10-20] MEDS: amLODIPine 5 MG TAB PO SCH (08:59)
[2018-10-20] MEDS: DOCUSATE SODIUM 100 MG CAP PO SCH (08:59)
[2018-10-20] MEDS: CEFEPIME HCL 2 GM in D5W MINI-BAG PLUS 50 ML IV SCH ×2 (08:59→21:48)
[2018-10-20] MEDS: METOPROLOL TART 50 MG TAB PO SCH ×2 (08:59→20:06)
--- NOTE | 2018-10-20 10:22 | IPN ---
DATE OF SERVICE: 10/20/2018 The patient denies any shortness of breath, fever or chills. He has occasional cough, but has been dry with no sputum production. The patient denies any recurrent hematuria. Denies dizziness, lightheadedness, near syncopal episode. He has been transfused one unit of red blood cells with repeat hemoglobin of 8.2 and hematocrit of 25.5. He remains afebrile. The patient's family has requested hospice due to renal CA with metastatic disease. No other complaints from patient. Temperature 98.6, pulse 74, respiratory rate 17, blood pressure 121/57, and 96% on room air. Generally, the patient is awake, alert and oriented to himself. Answering questions appropriately. Anicteric sclerae. No jaundice. Pupils round and reactive. Extraocular muscles are intact. No jugular venous distention (JVD), thyromegaly or cervical lymphadenopathy. Lungs: Clear to auscultation. No wheezing, rales or rhonchi. Heart: S1 and S2, sinus rhythm. No murmurs, rubs or gallops. Abdomen: Soft. Nontender. Nondistended. Positive bowel sounds. Extremities: No cyanosis, clubbing or pitting edema. LABORATORY DATA: White count 18.3, hemoglobin 8.2, hematocrit 25, platelet count 345. Sodium 138, potassium 4.5, chloride 109, bicarbonate 22, BUN 41, creatinine 2.2, glucose 126. Previous creatinine was 2.22. Alkaline phosphatase 252. Albumin 1.3. Microbiology: Two sets of blood cultures on 10/17/2018 negative. Urine culture on 10/17/2018 no growth. Chest x-ray on 10/19/2018 with left lower lobe infiltrate or atelectasis cannot be excluded. HOSPITAL MEDICATIONS: - vancomycin - ferrous sulfate - Lovenox - Norvasc - Crestor - levothyroxine - Cefepime - Mucinex - metoprolol - albuterol - acetaminophen - Mylanta ASSESSMENT AND PLAN: This is an 83-year-old male who lives at home with his . History significant for coronary artery disease (CAD) times four stents, abdominal aortic aneurysm, status post Endograft repair, hypertension, prostate cancer treated with freezing, arthritis, dyslipidemia, hypothyroidism, iron deficiency anemia, basal cell CA of the face, atrial fibrillation with rapid ventricular rate, liver biopsy, bilateral hip repair, diagnosed with renal cell CA stage IV with mets to liver, discharged 10/05/2018 with atrial fibrillation with rapid ventricular rate, now has healthcare-associated pneumonia (HCAP) and hematuria secondary to renal CA, status post one unit red blood cell transfusion. Active Issues: 1. HCAP with probable gram negative bacterial pneumonia, on vancomycin and Zosyn to complete a 7 day course. Pharmacy has been consulted to monitor patient's vancomycin level. He is on incentive spirometry, nebulizers and Mucinex. 2. Acute on chronic renal failure stage 3. Currently with Plummer. Status post gentle hydration. Stable creatinine. Avoiding nephrotoxins. Renally dosing all medications. 3. Diarrhea with patient stool softeners. 4. Atrial fibrillation, paroxysmal. On metoprolol. On no anticoagulation due to acute blood loss anemia. 5. Acute blood loss anemia secondary to renal cell CA, status post one unit red blood cell transfusion. Currently with hemoglobin above 8. 6. Debility and weakness secondary to pneumonia and metastatic renal cell CA stage IV. Physical therapy/occupational therapy (PT/OT). Acute rehabilitation unit (ARU). The patient and family have requested hospice consultation, patient and family service (PFS) has been consulted. 7. Renal cell CA metastatic stage IV with probable liver mets. Liver biopsy done on 10/08/2018 in [place], pathology is not available. 8. Disposition. Awaiting PT clearance and hospice discussion with family. 9. Hypothyroidism. On home levothyroxine. 10. Iron deficiency. On iron. 11. Stool softener has been discontinued due to four episodes of diarrhea.
[2018-10-20 15:14] VITALS: BP 117/66
[2018-10-20 22:00] VITALS: BP 114/66
[2018-10-21] MEDS: LEVOTHYROXINE 100MCG TABLET (0.1MG) PO SCH (05:41)
[2018-10-21 06:00] VITALS: BP 114/81
[2018-10-21 06:54] LABS: BASO # 0.1 10^3/uL (0.0-0.2); BASO % 0.3 % (0.0-1.0); EOS # 0.1 10^3/uL (0.0-0.5); EOS % 0.4 % (0.0-3.0); HEMATOCRIT 26.7 % (42.0-52.0); HEMOGLOBIN 8.4 g/dl (13.5-17.5); LYMPH % 5.6 % (24.0-44.0); MEAN CORPUSCULAR HEMOGLOBIN 25.9 pg (27.0-33.0); MEAN CORPUSCULAR HGB CONC 31.5 g/dl (32.0-36.5); MEAN CORPUSCULAR VOLUME 82.4 fl (80.0-96.0); MONO # 1.6 10^3/uL (0.0-0.8); MONO % 8.9 % (0.0-5.0); NEUTROPHILS % 83.7 % (36.0-66.0); PLATELET COUNT, AUTOMATED 356 10^3/uL (150-450); RED BLOOD COUNT 3.24 10^6/uL (4.30-6.10)
[2018-10-21 07:12] LABS: ALBUMIN 1.3 GM/DL (3.2-5.2); BILIRUBIN,TOTAL 0.4 MG/DL (0.2-1.0); CALCIUM LEVEL 9.4 MG/DL (8.8-10.2); CREATININE FOR GFR 2.23 MG/DL (0.70-1.30); GLOMERULAR FILTRATION RATE 30.1 (>35); POTASSIUM SERUM 4.5 MEQ/L (3.5-5.1); TOTAL PROTEIN 6.4 GM/DL (6.4-8.2)
[2018-10-21] MEDS: IPRATROPIUM 0.5MG/ALBUTEROL 2.5MG INH SOL UD 3ML (DUONEB)(J7620) NEB SCH ×3 (07:14→19:47)
[2018-10-21] MEDS: CEFEPIME HCL 2 GM in D5W MINI-BAG PLUS 50 ML IV SCH ×2 (09:33→21:32)
[2018-10-21] MEDS: amLODIPine 5 MG TAB PO SCH (09:34)
[2018-10-21] MEDS: FERROUS SULFATE 325MG TAB PO SCH (09:34)
[2018-10-21] MEDS: guaiFENesin ER 600 MG TAB PO SCH ×2 (09:34→21:31)
[2018-10-21] MEDS: METOPROLOL TART 50 MG TAB PO SCH ×2 (09:34→21:00)
[2018-10-21] MEDS: ENOXAPARIN 30 MG/0.3 ML SYR (J1650) SC SCH (09:34)
[2018-10-21] MEDS: ROSUVASTATIN 10 MG TAB (CRESTOR) PO SCH (09:35)
[2018-10-21 14:00] VITALS: BP 117/71
--- NOTE | 2018-10-21 17:49 | IPNPDOC ---
Date Seen The patient was seen on 10/21/18. Progress Note SUBJECTIVE: slightly confused today, and answers "yes, yes. I know." to questions. uncertain if pt can hear questions, but per RN, pt does not seem to be himself today. He continues to have gross hematuria, but says "no" when asked if he is sob, dizzy, or lightheaded. Hgb stable. Family met with hospice yesterday, and open to dc with hospice once stable. OBJECTIVE: PHYSICAL EXAMINATION: VITALS: [id number], pulse 77, respiratory rate 17, blood pressure 117/71, and 98% on room air. Generally, the patient is awake, alert and oriented to himself only. unable to Answer questions appropriately. Anicteric sclerae. No jaundice. Pupils round and reactive. Extraocular muscles are intact. No jugular venous distention (JVD), thyromegaly or cervical lymphadenopathy. no pallor, no cyanosis Lungs: Clear to auscultation. No wheezing, rales or rhonchi. Heart: S1 and S2, sinus rhythm. No murmurs, rubs or gallops. Abdomen: Soft. Nontender. Nondistended. Positive bowel sounds. Plummer with gross hematuria Extremities: No cyanosis, clubbing or pitting edema. LABORATORY DATA:reviewed, pls see below Microbiology: Two sets of blood cultures on 10/17/2018 negative. Urine culture on 10/17/2018 no growth. Chest x-ray on 10/19/2018 with left lower lobe infiltrate or atelectasis cannot be excluded. HOSPITAL MEDICATIONS: ferrous sulfate, Lovenox, Norvasc, Crestor, levothyroxine, Cefepime, Mucinex, metoprolol,albuterol,acetaminophen, Mylanta ASSESSMENT AND PLAN: This is an 83-year-old male who lives at home with his . History significant for coronary artery disease (CAD) times four stents, abdominal aortic aneurysm, status post Endograft repair, hypertension, prostate cancer treated with freezing, arthritis, dyslipidemia, hypothyroidism, iron deficiency anemia, basal cell CA of the face, atrial fibrillation with rapid ventricular rate, liver biopsy, bilateral hip repair, diagnosed with renal cell CA stage IV with mets to liver, discharged 10/05/2018 with atrial fibrillation with rapid ventricular rate, now has healthcare-associated pneumonia (HCAP) and hematuria secondary to renal CA, status post one unit red blood cell transfusion. Active Issues: 1. HCAP with probable gram negative bacterial pneumonia, on vancomycin and Zosyn to complete a 7 day course. Pharmacy has been consulted to monitor patient's vancomycin level. He is on incentive spirometry, nebulizers and Mucinex. 2. Acute on chronic renal failure stage 3. Currently with Plummer. Status post gentle hydration. Stable creatinine. Avoiding nephrotoxins. Renally dosing all medications. 3. Diarrhea with patient stool softeners. 4. Atrial fibrillation, paroxysmal. On metoprolol. On no anticoagulation due to acute blood loss anemia. 5. Acute blood loss anemia secondary to gross hematuria from known history of renal cell CA, status post one unit red blood cell transfusion. Currently with hemoglobin above 8. 6. Debility and weakness secondary to pneumonia and metastatic renal cell CA stage IV. Physical therapy/occupational therapy (PT/OT). Acute rehabilitation unit (ARU). The patient and family have requested hospice consultation, patient and family service (PFS) has been consulted. 7. Renal cell CA metastatic stage IV with probable liver mets. Liver biopsy done on 10/08/2018 in [place], pathology is not available. 8. Acute encephalopathy due to HCAP, anemia, renal cell ca. since pt cannot be anticoagulated due to acute blood loss anemia , if focal neurologic deficit is seen, pt will need to have CVA eval. 9. Hypothyroidism. On home levothyroxine. 10. Iron deficiency. On iron. 11. Stool softener has been discontinued due to four episodes of diarrhea. Disposition. Hospice has been consulted. pt to complete 7days of antibiotics. VS, I&O, [facility] Vital Signs/I&O Vital Signs Date Time Temp Pulse Resp B/P (MAP) Pulse Ox O2 Delivery O2 Flow Rate FiO2 10/21/18 14:00 98.0 77 17 117/71 (86) 98 10/20/18 22:00 10/17/18 17:49 Room Air I&O- Last 24 Hours up to 6 AM 10/21/18 06:00 Intake Total 470 ml Output Total 1700 ml Balance -1230 ml Laboratory Data 24H LABS Laboratory Tests 2 10/21/18 06:08: Immature Granulocyte % (Auto) 1.1, White Blood Count 18.0H, Red Blood Count 3.24L, Hemoglobin 8.4L, Hematocrit 26.7L, Mean Corpuscular Volume 82.4, Mean Corpuscular Hemoglobin 25.9L, Mean Corpuscular Hemoglobin Concent 31.5L, Red Cell Distribution Width 16.7H, Platelet Count 356, Neutrophils (%) (Auto) 83.7H, Lymphocytes (%) (Auto) 5.6L, Monocytes (%) (Auto) 8.9H, Eosinophils (%) (Auto) 0.4, Basophils (%) (Auto) 0.3, Neutrophils # (Auto) 15.0H, Lymphocytes # (Auto) 1.0L, Monocytes # (Auto) 1.6H, Eosinophils # (Auto) 0.1, Basophils # (Auto) 0.1, Nucleated Red Blood Cells % (auto) 0.0, Anion Gap 6L, Glomerular Filtration Rate 30.1L, Blood Urea Nitrogen 39H, Creatinine 2.23H, Sodium Level 137, Potassium Level 4.5, Chloride Level 109H, Carbon Dioxide Level 22, Calcium Level 9.4, Aspartate Amino Transf (AST/SGOT) 46H, Alanine Aminotransferase (ALT/SGPT) 48, Alkaline Phosphatase 253H, Total Bilirubin 0.4, Total Protein 6.4, Albumin 1.3L, Albumin/Globulin Ratio 0.25L CBC/BMP Laboratory Tests 10/21/18 06:08 Red Blood Count 3.24 L, Mean Corpuscular Volume 82.4, Mean Corpuscular Hemoglobin 25.9 L, Mean Corpuscular Hemoglobin Concent 31.5 L, Red Cell Distribution Width 16.7 H, Neutrophils (%) (Auto) 83.7 H, Lymphocytes (%) (Auto) 5.6 L, Monocytes (%) (Auto) 8.9 H, Eosinophils (%) (Auto) 0.4, Basophils (%) (Auto) 0.3, Neutrophils # (Auto) 15.0 H, Lymphocytes # (Auto) 1.0 L, Monocytes # (Auto) 1.6 H, Eosinophils # (Auto) 0.1, Basophils # (Auto) 0.1, Calcium Level 9.4, Aspartate Amino Transf (AST/SGOT) 46 H, Alanine Aminotransferase (ALT/SGPT) 48, Alkaline Phosphatase 253 H, Total Bilirubin 0.4, Total Protein 6.4, Albumin 1.3 L Microbiology Microbiology 10/17/18 Blood Culture - Preliminary, Resulted No Growth after 72 hours. All specime... 10/17/18 Blood Culture - Preliminary, Resulted No Growth after 72 hours. All specime... 10/21/18 Gastrointestinal Tract Panel (PCR) - Final, Complete 10/17/18 Urine Culture - Final, Complete JOANNA TUCKER MD Oct 21, 2018 17:45
[2018-10-21 21:29] VITALS: BP 107/59
[2018-10-21 22:00] VITALS: BP 114/61
[2018-10-22 05:52] VITALS: BP 122/69
[2018-10-22 06:00] VITALS: BP 122/69
[2018-10-22] MEDS: LEVOTHYROXINE 100MCG TABLET (0.1MG) PO SCH (06:07)
[2018-10-22 06:56] LABS: BASO # 0.1 10^3/uL (0.0-0.2); BASO % 0.2 % (0.0-1.0); EOS # 0.1 10^3/uL (0.0-0.5); EOS % 0.3 % (0.0-3.0); LYMPH # 0.8 10^3/uL (1.5-5.0); MEAN CORPUSCULAR HEMOGLOBIN 25.3 pg (27.0-33.0); MEAN CORPUSCULAR VOLUME 79.1 fl (80.0-96.0); MONO # 1.5 10^3/uL (0.0-0.8); MONO % 7.6 % (0.0-5.0); NEUTROPHILS # 17.4 10^3/uL (1.5-8.5); PLATELET COUNT, AUTOMATED 370 10^3/uL (150-450); RED BLOOD COUNT 3.16 10^6/uL (4.30-6.10)
[2018-10-22 07:20] LABS: ALBUMIN 1.3 GM/DL (3.2-5.2); BILIRUBIN,TOTAL 0.4 MG/DL (0.2-1.0); CALCIUM LEVEL 9.9 MG/DL (8.8-10.2); CREATININE FOR GFR 2.28 MG/DL (0.70-1.30); GLOMERULAR FILTRATION RATE 29.3 (>35); POTASSIUM SERUM 4.4 MEQ/L (3.5-5.1); TOTAL PROTEIN 6.5 GM/DL (6.4-8.2)
[2018-10-22] MEDS: IPRATROPIUM 0.5MG/ALBUTEROL 2.5MG INH SOL UD 3ML (DUONEB)(J7620) NEB SCH (08:00)
[2018-10-22 09:00] VITALS: BP 122/69
[2018-10-22] MEDS: guaiFENesin ER 600 MG TAB PO SCH ×2 (09:00→09:36)
[2018-10-22] MEDS: amLODIPine 5 MG TAB PO SCH ×2 (09:00→09:36)
[2018-10-22] MEDS: METOPROLOL TART 50 MG TAB PO SCH ×2 (09:00→09:37)
[2018-10-22] MEDS: ROSUVASTATIN 10 MG TAB (CRESTOR) PO SCH ×2 (09:00→09:36)
[2018-10-22] MEDS: ENOXAPARIN 30 MG/0.3 ML SYR (J1650) SC SCH (09:37)
[2018-10-22] MEDS ORDERED: LEVS0.123 PO (12:13)
[2018-10-22] MEDS ORDERED: ATIV1TAB10 SL (12:13)
[2018-10-22] MEDS ORDERED: MORP20SO PO (12:13)
--- NOTE | 2018-10-22 12:38 | DS.PDOC ---
Discharge Summary General Date of Admission Oct 17, 2018 at 15:35 Date of Discharge 10/22/18 Primary Care Physician: KHANH VALENTINE MD Discharge Summary PROCEDURES PERFORMED DURING STAY: None. ADMITTING DIAGNOSES: 1. Hospital-acquired pneumonia, renal cell carcinoma with liver metastases. DISCHARGE DIAGNOSES: 1. Hospital-acquired pneumonia, renal cell carcinoma with liver metastases. COMPLICATIONS/CHIEF COMPLAINT: Acute Renal Failure [facility] Pneumonia. HISTORY OF PRESENT ILLNESS: 83 yo male with renal cell carcinoma stage IV with mets to liver was recently discharged on 10/05/18 with afib RVR to home. and neice present and states home health came out to house to do interview, but no services started. Patient continued to get gradually weaker and over past 5 days was unable to use walker. They states over past 2 days he has fallen and yesterday, was unable to help him get off toilet because he was weak. and neice states patient has intermittent penile blood. This morning he had brown urine (small amount) and 2 copious diarrhea watery brown stools with blood in toilet bowl (they state not sure if blood from bowel or penis). He has been increased sleeping for past week. He has had chronic cough since august but worse over past 2-4 days with post tussis emesis. Cough worse when using straw to drink. During H&P patient had visual hallucinations (flies in room, cats on the floor, etc). states he has been having hallucinations over past "few" week (including while he was hospitalized) . There are no fevers, no nausea; + weight loss and poor appetite, increased sleeping. and neice are interested in hospice for patient and state they can no longer care for him at home. states patient had liver biopsy performed on 10/08 and they have appointment with Dr Sims next week to review results. . HOSPITAL COURSE: 1. HCAP with probable gram negative bacterial pneumonia, on vancomycin and Zosyn to complete a 7 day course. Pharmacy has been consulted to monitor patient's vancomycin level. He is on incentive spirometry, nebulizers and Mucinex. 2. Acute on chronic renal failure stage 3. Currently with [place]. Status post gentle hydration. Stable creatinine. Avoiding nephrotoxins. Renally dosing all medications. 3. Diarrhea with patient stool softeners. 4. Atrial fibrillation, paroxysmal. On metoprolol. On no anticoagulation due to acute blood loss anemia. 5. Acute blood loss anemia secondary to gross hematuria from known history of renal cell CA, status post one unit red blood cell transfusion. Currently with hemoglobin above 8. 6. Debility and weakness secondary to pneumonia and metastatic renal cell CA stage IV. Physical therapy/occupational therapy (PT/OT). Acute rehabilitation unit (ARU). The patient and family have requested hospice consultation, patient and family service (PFS) has been consulted. 7. Renal cell CA metastatic stage IV with probable liver mets. Liver biopsy done on 10/08/2018 in [facility], pathology is not available. 8. Acute encephalopathy due to HCAP, anemia, renal cell ca. since pt cannot be anticoagulated due to acute blood loss anemia , if focal neurologic deficit is seen, pt will need to have CVA eval. 9. Hypothyroidism. On home levothyroxine. 10. Iron deficiency. On iron. 11. Stool softener has been discontinued due to four episodes of diarrhea 12. Patient's family decided to sign comfort measures only and take patient home on hospice. All hospice arrangements were made. Patient will be discharged home on hospice with comfort measures only, as per patient and family's wishes. DISCHARGE MEDICATIONS: Please see below. ALLERGIES: Please see below. PHYSICAL EXAMINATION ON DISCHARGE: VITAL SIGNS: Please see below. GENERAL: Normal HEENT: PERRLA NECK: Supple CARDIOVASCULAR EXAMINATION: S1, S2, regular RESPIRATORY EXAMINATION: Scattered rhonchi ABDOMINAL EXAMINATION: Benign EXTREMITIES: . Pulses equal bilaterally SKIN: Normal NEUROLOGICAL EXAMINATION: . No focal motor or sensory deficit PSYCHIATRIC EXAMINATION: , Pleasant. Mood LABORATORY DATA: Please see below. IMAGING: PROGNOSIS: Poor ACTIVITY: As tolerated. DIET: As tolerated DISCHARGE PLAN: Discharged home on hospice DISPOSITION: . DISCHARGE INSTRUCTIONS: 1. As per discharge instructions. ITEMS TO FOLLOWUP ON ON OUTPATIENT: 1. None. DISCHARGE CONDITION: For prognosis. TIME SPENT ON DISCHARGE: 45 minutes. Vital Signs/I&Os Vital Signs Date Time Temp Pulse Resp B/P (MAP) Pulse Ox O2 Delivery O2 Flow Rate FiO2 10/22/18 09:00 114 122/69 10/22/18 06:00 98.2 96 10/21/18 22:00 18 10/20/18 22:00 10/17/18 17:49 Room Air I&O- Last 24 Hours up to 6 AM 10/22/18 06:00 Intake Total 390 ml Output Total 775 ml Balance -385 ml Laboratory Data Labs 24H Laboratory Tests 2 10/22/18 06:38: Immature Granulocyte % (Auto) 0.9, White Blood Count 20.0H, Red Blood Count 3.16L, Hemoglobin 8.0L, Hematocrit 25.0L, Mean Corpuscular Volume 79.1L, Mean Corpuscular Hemoglobin 25.3L, Mean Corpuscular Hemoglobin Concent 32.0, Red Cell Distribution Width 16.9H, Platelet Count 370, Neutrophils (%) (Auto) 87.0H, Lymphocytes (%) (Auto) 4.0L, Monocytes (%) (Auto) 7.6H, Eosinophils (%) (Auto) 0.3, Basophils (%) (Auto) 0.2, Neutrophils # (Auto) 17.4H, Lymphocytes # (Auto) 0.8L, Monocytes # (Auto) 1.5H, Eosinophils # (Auto) 0.1, Basophils # (Auto) 0.1, Nucleated Red Blood Cells % (auto) 0.0, Anion Gap 9, Glomerular Filtration Rate 29.3L, Blood Urea Nitrogen 42H, Creatinine 2.28H, Sodium Level 139, Potassium Level 4.4, Chloride Level 110H, Carbon Dioxide Level 20L, Calcium Level 9.9, Aspartate Amino Transf (AST/SGOT) 40H, Alanine Aminotransferase (ALT/SGPT) 41, Alkaline Phosphatase 234H, Total Bilirubin 0.4, Total Protein 6.5, Albumin 1.3L, Albumin/Globulin Ratio 0.25L CBC/BMP Laboratory Tests 10/22/18 06:38 Red Blood Count 3.16 L, Mean Corpuscular Volume 79.1 L, Mean Corpuscular Hemoglobin 25.3 L, Mean Corpuscular Hemoglobin Concent 32.0, Red Cell Distribution Width 16.9 H, Neutrophils (%) (Auto) 87.0 H, Lymphocytes (%) (Auto) 4.0 L, Monocytes (%) (Auto) 7.6 H, Eosinophils (%) (Auto) 0.3, Basophils (%) (Auto) 0.2, Neutrophils # (Auto) 17.4 H, Lymphocytes # (Auto) 0.8 L, Monocytes # (Auto) 1.5 H, Eosinophils # (Auto) 0.1, Basophils # (Auto) 0.1, Calcium Level 9.9, Aspartate Amino Transf (AST/SGOT) 40 H, Alanine Aminotransferase (ALT/SGPT) 41, Alkaline Phosphatase 234 H, Total Bilirubin 0.4, Total Protein 6.5, Albumin 1.3 L Microbiology Microbiology 10/17/18 Blood Culture - Preliminary, Resulted No Growth after 72 hours. All specime... 10/17/18 Blood Culture - Preliminary, Resulted No Growth after 72 hours. All specime... 10/21/18 Gastrointestinal Tract Panel (PCR) - Final, Complete 10/17/18 Urine Culture - Final, Complete Discharge Medications Scheduled Amlodipine Besylate (Amlodipine Besylate) 5 Mg Tablet, 5 MG PO DAILY, (Reported) Ferrous Sulfate (Ferrous Sulfate) 324 Mg Tablet.dr, 324 MG PO Q2D, (Reported) Levothyroxine Sodium (Synthroid) 100 Mcg Tablet, 100 MCG PO DAILY, (Reported) Metoprolol Tartrate (Metoprolol Tartrate) 50 Mg Tablet, 50 MG PO BID, (Reported) Rosuvastatin Calcium (Rosuvastatin Calcium) 40 Mg Tablet, 40 MG PO DAILY, (Reported) Scheduled PRN Acetaminophen (Acetaminophen) 325 Mg Tablet, 650 MG PO Q4H PRN for PAIN / FEVER, (Reported) Hyoscyamine Sulfate (Levsin) 0.125 Mg Tablet, 0.125 MG PO Q4H PRN for TERMINAL SECRETIONS Sennosides/Docusate Sodium (Senna-S Tablet) 1 Each Tablet, 2 TAB PO DAILY PRN for CONSTIPATION, (Reported) Allergies Coded Allergies: No Known Allergies (Unverified , 10/17/18) KHANH VALENTINE MD Oct 22, 2018 12:38
== END 2018-10-22 13:08 | disposition hospice, inpatient (51) | DRG 178 ==
LOC: M ED 11:40 → M ED INP 15:35 → M MS5PR 18:00
PROVIDERS: ADMIT Family Medicine; ATTEND Internal Medicine
PROC: 30233N1 Transfusion of Nonautologous Red Blood Cells into Peripheral Vein, Percutaneous Approach (ICD-10-PCS; principal; 2018-10-19)
DX: J15.6 Pneumonia due to other Gram-negative bacteria (principal); N17.9 Acute kidney failure, unspecified; C78.7 Secondary malignant neoplasm of liver and intrahepatic bile duct; C64.9 Malignant neoplasm of unspecified kidney, except renal pelvis; D62 Acute posthemorrhagic anemia; G93.40 Encephalopathy, unspecified; Y95 Nosocomial condition; R53.81 Other malaise; N18.3 Chronic kidney disease, stage 3 (moderate); I25.10 Atherosclerotic heart disease of native coronary artery without angina pectoris; R53.1 Weakness; Z51.5 Encounter for palliative care; Z66 Do not resuscitate; I12.9 Hypertensive chronic kidney disease with stage 1 through stage 4 chronic kidney disease, or unspecified chronic kidney disease; R19.7 Diarrhea, unspecified; R31.9 Hematuria, unspecified; E78.5 Hyperlipidemia, unspecified; M19.90 Unspecified osteoarthritis, unspecified site; E03.9 Hypothyroidism, unspecified; D50.9 Iron deficiency anemia, unspecified; I48.0 Paroxysmal atrial fibrillation; Z95.5 Presence of coronary angioplasty implant and graft; Z85.46 Personal history of malignant neoplasm of prostate; Z85.828 Personal history of other malignant neoplasm of skin; Z79.899 Other long term (current) drug therapy